=== PATIENT | female | born 1935 | race Caucasian/White ===

== ENCOUNTER → 2016-09-11 | Outpatient (CLI) | payer MEDICARE ==
[2015-10-02 15:00] VITALS: BP 154/56
[~2016-09-11] MED LIST: CALC1TAB PO; CHOL10007 PO; CYAN1TAB28 PO; DOCU-27 PO; DULO60CA44 PO; ERGO500012 PO; GABA-586 PO; HYDR5SOL2 PO; LEVO0.5P MC; LEVO75TA5 PO; LOSA1TAB18 PO; LOSA25TA4 PO; MORP30TA PO; NAPR500T3 PO; OXYC10TA32 PO; OXYC1TAB7 PO; PANT40TA5 PO; POLY17PO5 PO; SENN8.6C2 PO; TEMA7.5C2 PO; phenergan PR
--- NOTE | 2016-09-11 15:13 | CARD ---
APPROVED REPORT EXAM: Two-dimensional and M-mode echocardiogram with Doppler and color Doppler. Other Information Quality : GoodHR: 52bpm Rhythm : Bradycardia INDICATION Systolic ejection murmur RISK FACTORS Hypertension 2D DIMENSIONS RVDd2.3 (2.9-3.5cm)Left Atrium(2D)3.9 (1.6-4.0cm) IVSd1.2 (0.7-1.1cm)Aortic Root(2D)2.9 (2.0-3.7cm) LVDd4.0 (3.9-5.9cm)LVOT Diameter2.4 (1.8-2.4cm) PWd1.2 (0.7-1.1cm)LVDs4.1 (2.5-4.0cm) Aortic Valve AoV Peak Clark.157.5cm/sAoV VTI41.6cm AO Peak GR.9.9mmHgLVOT VTI 27.44cm AO Mean GR.5mmHg Mitral Valve MV E Ibyctdhs068.4cm/sMV E Peak Gr.5mmHg MV DECEL [id number] A Xvvrfukc43.2cm/s MV E Mean Gr.2mmHgE/A Ratio1.3 MV A [id number] TDI Lateral E' P. V8.50cm/sMedial E' P. V9.65cm/s E/Lateral E'13.1E/Medial E'11.5 Tricuspid Valve TR P. [id number]/sRAP [id number] TR Peak Gr.32mmHg Pulmonary Vein S1 Xmqbbrbf19.9cm/sS2 Dsgntvqb85.91cm/s D2 Dtgxrxdt87.9cm/sPVa [id number] LEFT VENTRICLE The left ventricle is normal size. There is mild concentric left ventricular hypertrophy. The left ve ntricular systolic function is normal. The Ejection Fraction is 60-65%. There is normal LV segmental wall motion. The left ventricular diastolic function and filling is normal for age. RIGHT VENTRICLE The right ventricle is normal size. There is normal right ventricular wall thickness. The right ventr icular systolic function is normal. ATRIA The left atrium size is normal. The right atrium size is normal. The interatrial septum is intact wit h no evidence for an atrial septal defect or patent foramen ovale as noted on 2-D or Doppler imaging. AORTIC VALVE The aortic valve is moderately sclerotic. The aortic valve is trileaflet. Doppler and Color Flow reve aled no significant aortic regurgitation. There is no significant aortic valvular stenosis. MITRAL VALVE Mitral annular calcification is moderate. The mitral valve leaflets are thickened. There is no eviden ce of mitral valve prolapse. There is no mitral valve stenosis. Doppler and Color Flow revealed mild to moderate mitral regurgitation. TRICUSPID VALVE Doppler and Color Flow revealed mild tricuspid regurgitation. There is mild pulmonary hypertension. T he pulmonary artery systolic pressure is estimated at 35 mmHg. PULMONIC VALVE The pulmonary valve is normal in structure and function. Doppler and Color Flow revealed no pulmonic valvular regurgitation. There is no pulmonic valvular stenosis. GREAT VESSELS The aortic root is normal in size. The ascending aorta is normal in size. The pulmonary artery is nor mal. The IVC is normal in size and collapses >50% with inspiration. PERICARDIAL EFFUSION There is no evidence of significant pericardial effusion. Critical Notification Critical Value: No <Conclusion> The left ventricular systolic function is normal. The Ejection Fraction is 60-65%. There is normal LV segmental wall motion. Mild to moderate mitral regurgitation. Mild tricuspid regurgitation. There is mild pulmonary hypertension. The pulmonary artery systolic pressure is estimated at 35 mmHg. There is no evidence of significant pericardial effusion.
== END | disposition home or self-care (01) ==
LOC: ECHO 12:56
PROVIDERS: ATTEND Internal Medicine Cardiovascular Disease
DX: R01.1 Cardiac murmur, unspecified (principal); I51.7 Cardiomegaly; I34.0 Nonrheumatic mitral (valve) insufficiency; I27.2 Other secondary pulmonary hypertension
CPT/HCPCS: 93306

== ENCOUNTER 2017-05-29 14:03 | Inpatient (IN) | payer BC ==
[~2017-05-29] VITALS: Ht 154.9 cm; Wt 78.0 kg
[~2017-05-29 14:03] MED LIST changes: +CHOL100014 PO; -CHOL10007 PO; +DOCU-109 PO; -DOCU-27 PO; -ERGO500012 PO; +ERGO500027 PO; -LOSA1TAB18 PO; +LOSA1TAB25 PO; -NAPR500T3 PO; +NAPR500T4 PO; -OXYC10TA32 PO; +OXYC10TA45 PO; +POLY17PO29 PO; -POLY17PO5 PO
[2017-05-29] MEDS ORDERED: IV NORMAL SALINE 500ML BAG 500 ML IV ONE (14:15)
[2017-05-29] MEDS ORDERED: FAMOTIDINE 20 MG/2 ML VIAL IVP ONE (14:15)
[2017-05-29] MEDS ORDERED: methylPREDNISolone SOD SUCC PF 125 MG/2 ML VIAL. IV ONE (14:15)
[2017-05-29] MEDS ORDERED: diphenhydrAMINE 50 MG/ML VIAL IV ONE (14:15)
[2017-05-29] MEDS ORDERED: ALBUTEROL SULFATE 2.5 MG/3 ML NEBU. ONE (14:16)
[2017-05-29] MEDS ORDERED: ONDANSETRON PF 4 MG/2 ML VIAL. ONE (14:19)
--- NOTE | 2017-05-29 14:25 | RAD ---
AP chest 05/29/2017 Clinical indication: Chest pain. Comparison: AP chest 09/30/2015. Findings: Heart size is mildly enlarged without pulmonary venous congestion. No pleural effusion, pneumothorax or focal consolidation. Impression: Mild cardiomegaly without forrest pulmonary edema.
[2017-05-29 14:29] LABS: BASO # 0.1 x10^3/uL (0.0-0.2); BASO % 1 % (0-3); EOS % 1 % (0-3); HEMATOCRIT 35.5 % (36.0-47.0); HEMOGLOBIN 12.2 g/dL (12.0-15.5); LYMPH # 2.9 x10^3/uL (1.0-4.8); LYMPH % 30 % (24-48); MEAN CORPUSCULAR HEMOGLOBIN 33 pg (25-35); MEAN CORPUSCULAR HGB CONC 35 g/dL (31-37); MEAN CORPUSCULAR VOLUME 96 fL (79-100); MONO % 4 % (0-9); NEUT % 65 % (31-73); PLATELET COUNT 252 x10^3/uL (140-400); RED BLOOD COUNT 3.68 x10^6/uL (3.50-5.40); WHITE BLOOD COUNT 9.7 x10^3/uL (4.0-11.0)
[2017-05-29] MEDS ORDERED: ONDANSETRON PF 4 MG/2 ML VIAL. IV ONE (14:30)
[2017-05-29 14:38] LABS: INR 1.1 (0.8-1.1); PROTHROMBIN TIME PATIENT 13.6 SEC (11.7-14.0)
[2017-05-29 14:41] LABS: CALCIUM 8.3 mg/dL (8.5-10.1); CREATININE 1.2 mg/dL (0.6-1.0); POTASSIUM 4.4 mmol/L (3.5-5.1)
[2017-05-29 14:47] LABS: ALBUMIN 3.5 g/dL (3.4-5.0); DIRECT BILIRUBIN 0.1 mg/dL (0.0-0.2); TOTAL BILIRUBIN 0.4 mg/dL (0.2-1.0); TOTAL PROTEIN 6.5 g/dL (6.4-8.2)
[2017-05-29] MEDS ORDERED: ONDANSETRON PF 4 MG/2 ML VIAL. IV PRN (15:45)
[2017-05-29] MEDS ORDERED: HYDROmorphone 2 MG/ML VIAL IV PRN (15:45)
--- NOTE | 2017-05-29 16:13 | PHYS DOC ---
Past Medical History Past Medical History: Constipation, Hypertension, Hypothyroid Additional Past Medical Histor: CHRONIC PAIN, RIGHT LEG, RIGHT HIP Past Surgical History: Hysterectomy, Lumbar Laminectomy Additional Past Surgical Histo: BACK Alcohol Use: None Drug Use: None Adult General Chief Complaint Chief Complaint: ALLERGIC REACTION HPI HPI 81-year-old female who is an extremely poor historian presenting to the emergency department today with her spouse after having a "allergic reaction". She reports she had some peppers 2 days ago from which she had some nausea and emesis. She also was seen in urgent care earlier today she reports being given a shot does not know what medication was administered. She also was given a cream for rash in her inguinal and intertriginous folds. Onset 2 days. Location GI tract. Duration intermittent. No alleviating or exacerbating factors present. Review of systems is negative for fevers chills urticaria shortness of breath difficulty breathing. She does report intermittent chest pain over the past few days that she describes as a pressure sensation. Currently she does not have chest pain. All other review of systems is negative unless otherwise noted in history of present illness. ED course. 81-year-old female presenting to the emergency department with nausea and a rash in the intertriginous regions reporting having allergic reaction. Upon arrival the patient was saturating well and did have a few episodes of emesis. On examination lungs are clear to auscultation. Abdomen is soft nondistended nontender with active bowel sounds. The remainder the exam is unremarkable. EKG along with blood work obtained which showed low sodium likely chronic. The patient was given Zofran however on reexamination she wasn't feeling better. Patient's rash is more likely a fungal for which I gave the patient topical nystatin powder. The patient received IV corticosteroids along with anti-histaminergic medications to treat a possible allergic reaction. I then admitted the patient to the hospital for further evaluation monitoring workup and care. I have assessed this patient clinically and believe that their condition requires an admission to the hospital. After consulting the admitting physician about this case, they have asked that I admit this patient to their service as an inpatient based on the clinical presentation and my impression. Review of Systems Review of Systems SEE ABOVE. Current Medications Current Medications Current Medications Medications (Trade) Dose Ordered Sig/Henry Start Time Stop Time Status Last Admin Dose Admin Albuterol Sulfate (Ventolin Neb Soln) 2.5 mg STK-MED ONCE 05/29/17 14:16 05/29/17 14:17 DC Diphenhydramine HCl (Benadryl) 25 mg 1X ONCE 05/29/17 14:15 05/29/17 14:16 DC 05/29/17 14:14 25 MG Famotidine (Pepcid Vial) 20 mg 1X ONCE 05/29/17 14:15 05/29/17 14:16 DC 05/29/17 14:14 20 MG Methylprednisolone Sodium Succinate (SOLU-Medrol 125MG VIAL) 125 mg 1X ONCE 05/29/17 14:15 05/29/17 14:16 DC 05/29/17 14:14 125 MG Nystatin (Nystop) 1 ida BID 05/29/17 15:30 05/29/17 18:52 1 IDA Ondansetron HCl (Zofran) 4 mg 1X ONCE 05/29/17 14:30 05/29/17 14:31 DC 05/29/17 14:23 4 MG Sodium Chloride 500 ml @ 500 mls/hr 1X ONCE 05/29/17 14:15 05/29/17 15:14 DC 05/29/17 14:15 500 MLS/HR Allergies Allergies Allergies Coded Allergies Type Severity Reaction Last Updated Verified Sulfa (Sulfonamide Antibiotics) Allergy Intermediate Rash 09/30/15 Yes iodine Allergy Intermediate painful rash 09/30/15 Yes iohexol Allergy Intermediate PAINFUL RASH 09/30/15 Yes pepper Allergy Mild NAUSEA/VOMITING 10/01/15 No Physical Exam Physical Exam SEE ABOVE Constitutional: Well developed, well nourished, no acute distress, non-toxic appearance. HENT: Normocephalic, atraumatic, bilateral external ears normal, oropharynx moist, no oral exudates, nose normal. [] Eyes: PERRLA, EOMI, conjunctiva normal, no discharge. Neck: Normal range of motion, no tenderness, supple, no stridor. [] Cardiovascular:Heart rate regular rhythm, no murmur Lungs & Thorax: Bilateral breath sounds clear to auscultation [] Abdomen: Bowel sounds normal, soft, no tenderness, no masses, no pulsatile masses. Skin: Warm, dry, no erythema. Mild erythematous rash in the inguinal intertriginous regions. Back: No tenderness, no CVA tenderness. Extremities: No tenderness, no cyanosis, no clubbing, ROM intact, no edema. [] Neurologic: Alert and oriented X 3, normal motor function, normal sensory function, no focal deficits noted. [] Psychologic: Affect normal, judgement normal, mood normal. [] Current Patient Data Vital Signs Vital Signs Date Time Temp Pulse Resp B/P (MAP) Pulse Ox O2 Delivery O2 Flow Rate FiO2 05/29/17 15:30 60 18 165/66 (99) 98 Room Air 05/29/17 14:05 97.7 97.7 Lab Values Laboratory Tests Test 05/29/17 14:10 White Blood Count 9.7 x10^3/uL (4.0-11.0) Red Blood Count 3.68 x10^6/uL (3.50-5.40) Hemoglobin 12.2 g/dL (12.0-15.5) Hematocrit 35.5 % (36.0-47.0) L Mean Corpuscular Volume 96 fL (79-100) Mean Corpuscular Hemoglobin 33 pg (25-35) Mean Corpuscular Hemoglobin Concent 35 g/dL (31-37) Red Cell Distribution Width 13.0 % (11.5-14.5) Platelet Count 252 x10^3/uL (140-400) Neutrophils (%) (Auto) 65 % (31-73) Lymphocytes (%) (Auto) 30 % (24-48) Monocytes (%) (Auto) 4 % (0-9) Eosinophils (%) (Auto) 1 % (0-3) Basophils (%) (Auto) 1 % (0-3) Neutrophils # (Auto) 6.3 x10^3uL (1.8-7.7) Lymphocytes # (Auto) 2.9 x10^3/uL (1.0-4.8) Monocytes # (Auto) 0.4 x10^3/uL (0.0-1.1) Eosinophils # (Auto) 0.1 x10^3/uL (0.0-0.7) Basophils # (Auto) 0.1 x10^3/uL (0.0-0.2) Prothrombin Time 13.6 SEC (11.7-14.0) Prothrombin Time INR 1.1 (0.8-1.1) PTT 28 SEC (24-38) Sodium Level 125 mmol/L (136-145) L Potassium Level 4.4 mmol/L (3.5-5.1) Chloride Level 93 mmol/L (98-107) L Carbon Dioxide Level 23 mmol/L (21-32) Anion Gap 9 (6-14) Blood Urea Nitrogen 15 mg/dL (7-20) Creatinine 1.2 mg/dL (0.6-1.0) H Estimated GFR (Cockcroft-Gault) 43.0 Glucose Level 145 mg/dL (70-99) H Calcium Level 8.3 mg/dL (8.5-10.1) L Total Bilirubin 0.4 mg/dL (0.2-1.0) Direct Bilirubin 0.1 mg/dL (0.0-0.2) Aspartate Amino Transferase (AST) 17 U/L (15-37) Alanine Aminotransferase (ALT) 19 U/L (14-59) Alkaline Phosphatase 83 U/L (46-116) Troponin I Quantitative < 0.017 ng/mL (0.000-0.055) WG-Uoa-Y-Type Natriuretic Peptide 367 pg/mL (0-449) Total Protein 6.5 g/dL (6.4-8.2) Albumin 3.5 g/dL (3.4-5.0) Lipase 92 U/L (73-393) Laboratory Tests 05/29/17 14:10 Laboratory Tests 05/29/17 14:10 EKG EKG [] Radiology/Procedures Radiology/Procedures [] Course & Med Decision Making Course & Med Decision Making Pertinent Labs and Imaging studies reviewed. (See chart for details) [] Dragon Disclaimer Dragon Disclaimer This electronic medical record was generated, in whole or in part, using a voice recognition dictation system. Departure Departure Impression: Primary Impression: Nausea & vomiting Additional Impressions: Chest pain Rash Disposition: ADMITTED INPATIENT Admitting Physician: Lucy Haddad Condition: STABLE Referrals: WILFREDO APODACA MD (PCP) Problem Qualifiers REKHA MANN MD May 29, 2017 16:13
[2017-05-29 17:30] VITALS: BP 143/60
[2017-05-29] MEDS ORDERED: diphenhydrAMINE HCL 25 MG CAPSULE PO ONE (18:15)
--- NOTE | 2017-05-29 18:20 | PDOC1 ---
History and Physical Date of Admission Date of Admission DATE: 05/29/17 TIME: 18:14 Identification/Chief Complaint Chief Complaint rash, itching Problems: Source Source: Chart review, Patient History of Present Illness History of Present Illness Ms. Graves is an 81-year-old female presented confused today and with her spouse after having a "allergic reaction". She was agitated with skin rash and itching and could not get comfortable. She told me a long story about the Holiday potluck at the [facility], and that she might have ate some pepper that she is very allergic too. Apparently that was 2 days ago. She has had some nausea and emesis. She also was seen in urgent care earlier today and was given a shot. her rash is her inguinal area, and back, . Past Medical History Cardiovascular: HTN Endocrine: Hypothyroidism Past Surgical History Past Surgical History: Other Family History Family History: No Significant Social History Smoke: No ALCOHOL: rare Current Problem List Problem List Problems Medical Problems: (1) Chest pain Status: Acute (2) Nausea & vomiting Status: Acute (3) Rash Status: Acute Problems: Current Medications Current Medications Current Medications Methylprednisolone Sodium Succinate (SOLU-Medrol 125MG VIAL) 125 mg 1X ONCE IV Last administered on 05/29/17 14:14; Start 05/29/17 at 14:15; Stop at 14:16; Status DC Diphenhydramine HCl (Benadryl) 25 mg 1X ONCE IV Last administered on 14:14; Start 05/29/17 at 14:15; Stop 05/29/17 at 14:16; Status DC Famotidine (Pepcid Vial) 20 mg 1X ONCE IVP Last administered on 05/29/17 14: 14; Start 05/29/17 at 14:15; Stop 05/29/17 at 14:16; Status DC Sodium Chloride 500 ml @ 500 mls/hr 1X ONCE IV Last administered on 14:15; Start 05/29/17 at 14:15; Stop 05/29/17 at 15:14; Status DC Albuterol Sulfate (Ventolin Neb Soln) 2.5 mg STK-MED ONCE .ROUTE ; Start at 14:16; Stop 05/29/17 at 14:17; Status DC Ondansetron HCl (Zofran) 4 mg STK-MED ONCE .ROUTE ; Start 05/29/17 at 14:19; Stop 05/29/17 at 14:20; Status DC Ondansetron HCl (Zofran) 4 mg 1X ONCE IV Last administered on 05/29/17t 14:23 ; Start 05/29/17 at 14:30; Stop 05/29/17 at 14:31; Status DC Nystatin (Nystop) 1 ida BID TP ; Start 05/29/17 at 15:30 Ondansetron HCl (Zofran) 4 mg PRN Q8HRS PRN IV NAUSEA/VOMITING; Start at 15:45; Stop 05/30/17 at 15:44 Sodium Chloride 1,000 ml @ 100 mls/hr Q10H IV ; Start 05/29/17 at 15:42; Stop 05/30/17 at 03:41 Hydromorphone HCl (Dilaudid) 0.5 mg PRN Q30MIN PRN IV SEVERE PAIN; Start 05/29 at 15:45 Active Scripts Active Reported Restoril (Temazepam) 7.5 Mg Capsule 7.5 Mg PO HS PRN Vitamin D3 (Cholecalciferol (Vitamin D3)) 1,000 Unit Capsule 1,000 Unit PO DAILY Colace (Docusate Sodium) 100 Mg Capsule 1 Cap PO DAILY Miralax (Polyethylene Glycol 3350) 17 Gm Powd.pack 17 Gm PO DAILY Last dose given: 9:00 a.m. Oxycodone-Acetaminophen 5-325 (Oxycodone Hcl/Acetaminophen) 1 Each Tablet 1 Each PO PRN Q6HRS PRN Last dose given: 2:00 p.m. Losartan Potassium 25 Mg Tablet 50 Mg PO DAILY Last dose given: 9:00 a.m. Levothyroxine Sodium 75 Mcg Tablet 75 Mcg PO DAILY Last dose given: 7:00 a.m. Allergies Allergies: Coded Allergies: Sulfa (Sulfonamide Antibiotics) (Verified Allergy, Intermediate, Rash, ) iodine (Verified Allergy, Intermediate, painful rash, 09/30/15) pt states that she is sensitive to all chemicals iohexol (Verified Allergy, Intermediate, PAINFUL RASH, 09/30/15) pepper (Unverified Allergy, Mild, NAUSEA/VOMITING, 10/01/15) ROS General: YES: Fatigue, No: Chills, Night Sweats, Malaise, Appetite, Other PSYCHOLOGICAL ROS: No: Anxiety, Behavioral Disorder, Concentration difficultie , Decreased libido, Depression, Disorientation, Hallucinations, Hostility, Irritablity, Memory difficulties, Mood Swings, Obsessive thoughts, Suicidal ideation, Other Eyes: No Blurry vision, No Decreased vision, No Double vision, No Dry eyes, No Excessive tearing, No Eye Pain, No Itchy Eyes, No Loss of vision, No Photophobia , No Scotomata, No Uses contacts, No Uses glasses, No Other HEENT: No: Heacaches, Visual Changes, Hearing change, Nasal congestion, Nasal discharge, Oral lesions, Sinus pain, Sore Throat, Epistaxis, Sneezing, Snoring, Tinnitus, Vertigo, Vocal changes, Other Respiratory: YES: Shortness of breath, No: Cough, Hemoptysis, Orthopnea, Pleuritic Pain, SOB with excertion, Sputum Changes, Stridor, Tachypnea, Wheezing, Other Cardiovascular: No Chest Pain, No Palpitations, No Orthopnea, No Paroxysmal Noc. Dyspnea, No Edema, No Lt Headedness, No Other Gastrointestinal: No Nausea, No Vomiting, No Abdominal Pain, No Diarrhea, No Constipation, No Melena, No Hematochezia, No Other Genitourinary: No Dysuria, No Frequency, No Incontinence, No Hematuria, No Retention, No Discharge, No Urgency, No Pain, No Flank Pain, No Other, No , No , No , No , No , No , No Musculoskeletal: No Gait Disturbance, No Joint Pain, No Joint Stiffness, No Joint Swelling, No Muscle Pain, No Muscular Weakness, No Pain In:, No Swelling In:, No Other Neurological: No Behavorial Changes, No Bowel/Bladder ControlChng, No Confusion , No Dizziness, No Gait Disturbance, No Headaches, No Impaired Coord/balance, No Memory Loss, No Numbness/Tingling, No Seizures, No Speech Problems, No Tremors, No Visual Changes, No Weakness, No Other Skin: Yes Dry Skin, Yes Eczema, Yes Rash, Yes Skin Lesion Changes, Yes Other Physical Exam General: Alert, Oriented X3, No acute distress HEENT: Atraumatic, PERRLA, EOMI, Mucous membr. moist/pink Lungs: Clear to auscultation, Normal air movement Heart: no gallops, no murmurs Abdomen: Normal bowel sounds, Soft Extremities: No cyanosis, No edema Skin: Other (erythema with rash and papulus to back and groin, poss allergic ) Neuro: Normal gait, Sensation intact, Cranial nerves 3-12 NL Psych/Mental Status: Mood NL Vitals Vitals Vital Signs Date Time Temp Pulse Resp B/P (MAP) Pulse Ox O2 Delivery O2 Flow Rate FiO2 05/29/17 17:30 98.0 62 18 143/60 (87) 97 Room Air 98.0 Labs Labs Laboratory Tests Test 05/29/17 14:10 White Blood Count 9.7 x10^3/uL (4.0-11.0) Red Blood Count 3.68 x10^6/uL (3.50-5.40) Hemoglobin 12.2 g/dL (12.0-15.5) Hematocrit 35.5 % (36.0-47.0) Mean Corpuscular Volume 96 fL (79-100) Mean Corpuscular Hemoglobin 33 pg (25-35) Mean Corpuscular Hemoglobin Concent 35 g/dL (31-37) Red Cell Distribution Width 13.0 % (11.5-14.5) Platelet Count 252 x10^3/uL (140-400) Neutrophils (%) (Auto) 65 % (31-73) Lymphocytes (%) (Auto) 30 % (24-48) Monocytes (%) (Auto) 4 % (0-9) Eosinophils (%) (Auto) 1 % (0-3) Basophils (%) (Auto) 1 % (0-3) Neutrophils # (Auto) 6.3 x10^3uL (1.8-7.7) Lymphocytes # (Auto) 2.9 x10^3/uL (1.0-4.8) Monocytes # (Auto) 0.4 x10^3/uL (0.0-1.1) Eosinophils # (Auto) 0.1 x10^3/uL (0.0-0.7) Basophils # (Auto) 0.1 x10^3/uL (0.0-0.2) Prothrombin Time 13.6 SEC (11.7-14.0) Prothromb Time International Ratio 1.1 (0.8-1.1) Activated Partial Thromboplast Time 28 SEC (24-38) Sodium Level 125 mmol/L (136-145) Potassium Level 4.4 mmol/L (3.5-5.1) Chloride Level 93 mmol/L (98-107) Carbon Dioxide Level 23 mmol/L (21-32) Anion Gap 9 (6-14) Blood Urea Nitrogen 15 mg/dL (7-20) Creatinine 1.2 mg/dL (0.6-1.0) Estimated GFR (Cockcroft-Gault) 43.0 Glucose Level 145 mg/dL (70-99) Calcium Level 8.3 mg/dL (8.5-10.1) Total Bilirubin 0.4 mg/dL (0.2-1.0) Direct Bilirubin 0.1 mg/dL (0.0-0.2) Aspartate Amino Transf (AST/SGOT) 17 U/L (15-37) Alanine Aminotransferase (ALT/SGPT) 19 U/L (14-59) Alkaline Phosphatase 83 U/L (46-116) Troponin I Quantitative < 0.017 ng/mL (0.000-0.055) GQ-Tjt-I-Type Natriuretic Peptide 367 pg/mL (0-449) Total Protein 6.5 g/dL (6.4-8.2) Albumin 3.5 g/dL (3.4-5.0) Lipase 92 U/L (73-393) Laboratory Tests Test 05/29/17 14:10 White Blood Count 9.7 x10^3/uL (4.0-11.0) Red Blood Count 3.68 x10^6/uL (3.50-5.40) Hemoglobin 12.2 g/dL (12.0-15.5) Hematocrit 35.5 % (36.0-47.0) Mean Corpuscular Volume 96 fL (79-100) Mean Corpuscular Hemoglobin 33 pg (25-35) Mean Corpuscular Hemoglobin Concent 35 g/dL (31-37) Red Cell Distribution Width 13.0 % (11.5-14.5) Platelet Count 252 x10^3/uL (140-400) Neutrophils (%) (Auto) 65 % (31-73) Lymphocytes (%) (Auto) 30 % (24-48) Monocytes (%) (Auto) 4 % (0-9) Eosinophils (%) (Auto) 1 % (0-3) Basophils (%) (Auto) 1 % (0-3) Neutrophils # (Auto) 6.3 x10^3uL (1.8-7.7) Lymphocytes # (Auto) 2.9 x10^3/uL (1.0-4.8) Monocytes # (Auto) 0.4 x10^3/uL (0.0-1.1) Eosinophils # (Auto) 0.1 x10^3/uL (0.0-0.7) Basophils # (Auto) 0.1 x10^3/uL (0.0-0.2) Prothrombin Time 13.6 SEC (11.7-14.0) Prothromb Time International Ratio 1.1 (0.8-1.1) Activated Partial Thromboplast Time 28 SEC (24-38) Sodium Level 125 mmol/L (136-145) Potassium Level 4.4 mmol/L (3.5-5.1) Chloride Level 93 mmol/L (98-107) Carbon Dioxide Level 23 mmol/L (21-32) Anion Gap 9 (6-14) Blood Urea Nitrogen 15 mg/dL (7-20) Creatinine 1.2 mg/dL (0.6-1.0) Estimated GFR (Cockcroft-Gault) 43.0 Glucose Level 145 mg/dL (70-99) Calcium Level 8.3 mg/dL (8.5-10.1) Total Bilirubin 0.4 mg/dL (0.2-1.0) Direct Bilirubin 0.1 mg/dL (0.0-0.2) Aspartate Amino Transf (AST/SGOT) 17 U/L (15-37) Alanine Aminotransferase (ALT/SGPT) 19 U/L (14-59) Alkaline Phosphatase 83 U/L (46-116) Troponin I Quantitative < 0.017 ng/mL (0.000-0.055) SK-Xhg-H-Type Natriuretic Peptide 367 pg/mL (0-449) Total Protein 6.5 g/dL (6.4-8.2) Albumin 3.5 g/dL (3.4-5.0) Lipase 92 U/L (73-393) VTE Prophylaxis Ordered VTE Prophylaxis Devices: Yes VTE Pharmacological Prophylaxi: No Assessment/Plan Assessment/Plan acute on chronic encephalopathy delirium from puritis skin rash, hives, possible allergic, consult derm, try benadryl cream, hydrocort cream IV steroids given in ER htn hypothyroid JAYA MIGUEL MD May 29, 2017 18:20
[2017-05-29] MEDS ORDERED: TEMAZEPAM 7.5 MG CAPSULE PO PRN (18:30)
[2017-05-29] MEDS ORDERED: oxyCODONE/APAP 5/325 1 TAB TABLET PO PRN (18:30)
[2017-05-29] MEDS: IV NORMAL SALINE 1000ML BAG 1,000 ML IV SCH (18:51)
[2017-05-29] MEDS: NYSTATIN TOPICAL POWDER 15GM BOTTLE. TP SCH ×2 (18:52→21:28)
--- NOTE | 2017-05-29 19:31 | EKG ---
[facility] [address] [place] [address] Test Date: 2017-05-29 Test Time: 14:29:44 Pat Name: MAGI KEANE Department: Room: Gender: F [employer] Operator: : [id number] Requested By: REKHA MANN Order Number: [id number] Reading MD: Measurements Intervals [place] Rate: 54 P: 12 WV: 150 QRS: -46 QRSD: 132 T: 0 QT: 470 QTc: 448 Interpretive Statements SINUS RHYTHM ABNORMAL LEFT AXIS DEVIATION LEFT ANTERIOR FASCICULAR BLOCK RIGHT BUNDLE BRANCH BLOCK BIFASCICULAR BLOCK ABNORMAL ECG RI6.01 No previous ECG available for comparison
[2017-05-29 19:49] VITALS: BP 129/51
[2017-05-29] MEDS: DIPHENHYDRAMINE/ZINC ACETATE 2%/0.1% TOPICAL CREAM 28GM TUBE. TP SCH (20:00)
[2017-05-29] MEDS ORDERED: GABA600T2 PO (20:03)
[2017-05-29] MEDS ORDERED: GABAPENTIN 300 MG CAPSULE. PO SCH (21:00)
[2017-05-29] MEDS: HYDROCORTISONE 1% TOPICAL OINTMENT 30GM TUBE. TP SCH (21:29)
[2017-05-29 23:54] VITALS: BP 135/59
[2017-05-30] MEDS: IV NORMAL SALINE 1000ML BAG 1,000 ML IV SCH (01:42)
[2017-05-30 02:33] VITALS: BP 137/52
[2017-05-30 05:49] LABS: BASO % 0 % (0-3); EOS % 0 % (0-3); HEMATOCRIT 33.1 % (36.0-47.0); HEMOGLOBIN 11.3 g/dL (12.0-15.5); LYMPH # 0.6 x10^3/uL (1.0-4.8); LYMPH % 9 % (24-48); MEAN CORPUSCULAR HEMOGLOBIN 33 pg (25-35); MEAN CORPUSCULAR HGB CONC 34 g/dL (31-37); MEAN CORPUSCULAR VOLUME 97 fL (79-100); MONO % 1 % (0-9); NEUT % 90 % (31-73); PLATELET COUNT 222 x10^3/uL (140-400); RED BLOOD COUNT 3.42 x10^6/uL (3.50-5.40); RED CELL DISTRIBUTION WIDTH 13.3 % (11.5-14.5); WHITE BLOOD COUNT 6.5 x10^3/uL (4.0-11.0)
[2017-05-30 06:55] LABS: CALCIUM 8.1 mg/dL (8.5-10.1); GFR 53.1; POTASSIUM 4.5 mmol/L (3.5-5.1)
[2017-05-30 07:00] VITALS: BP 134/61
[2017-05-30] MEDS ORDERED: LEVOTHYROXINE 75 MCG TABLET PO SCH (07:00)
[2017-05-30] MEDS: DIPHENHYDRAMINE/ZINC ACETATE 2%/0.1% TOPICAL CREAM 28GM TUBE. TP SCH ×3 (07:40→12:58)
[2017-05-30] MEDS ORDERED: LOSARTAN POTASSIUM 25 MG TABLET. PO SCH (09:00)
[2017-05-30] MEDS ORDERED: DOCUSATE SODIUM 100 MG CAPSULE. PO SCH (09:00)
[2017-05-30] MEDS ORDERED: GABAPENTIN 300 MG CAPSULE. PO SCH (09:00)
[2017-05-30] MEDS ORDERED: POLYETHYLENE GLYCOL 3350 17 GM PACKET. PO SCH (09:00)
[2017-05-30 09:35] LABS: OVALOCYTES FEW; PLT ESTIMATE ADEQUATE (ADEQUATE)
[2017-05-30] MEDS ORDERED: ACETAMINOPHEN 500 MG TABLET PO PRN (09:45)
[2017-05-30] MEDS: diphenhydrAMINE HCL 25 MG CAPSULE PO PRN ×2 (09:59→15:32)
[2017-05-30 11:00] VITALS: BP 130/49
[2017-05-30] MEDS: HYDROCORTISONE 1% TOPICAL OINTMENT 30GM TUBE. TP SCH (12:54)
[2017-05-30] MEDS: NYSTATIN TOPICAL POWDER 15GM BOTTLE. TP SCH (12:54)
[2017-05-30] MEDS ORDERED: DIPH25CA58 PO (14:36)
--- NOTE | 2017-05-30 14:42 | PDOC3 ---
Discharge Summary Visit Information Date of Admission: May 29, 2017 Date of Discharge: May 30, 2017 Admitting Diagnosis Comment: Allergic dermatitis, possible contact versus induced by pepper BCT NOS, BMI 32.5, delirium present on admission resolved -secondary to steroids? Final Diagnosis Problems Medical Problems: (1) Chest pain Status: Acute (2) Nausea & vomiting Status: Acute (3) Rash Status: Acute Brief Hospital Course Allergies Allergies Coded Allergies Type Severity Reaction Last Updated Verified Sulfa (Sulfonamide Antibiotics) Allergy Intermediate Rash 09/30/15 Yes iodine Allergy Intermediate painful rash 09/30/15 Yes iohexol Allergy Intermediate PAINFUL RASH 09/30/15 Yes pepper Allergy Mild NAUSEA/VOMITING 05/30/17 Yes Vital Signs Vital Signs Date Time Temp Pulse Resp B/P (MAP) Pulse Ox O2 Delivery O2 Flow Rate FiO2 05/30/17 11:00 97.3 63 18 130/49 (76) 98 Room Air 97.3 Lab Results Laboratory Tests Test 05/29/17 14:10 05/29/17 21:00 05/30/17 03:30 White Blood Count 9.7 x10^3/uL (4.0-11.0) 6.5 x10^3/uL (4.0-11.0) Red Blood Count 3.68 x10^6/uL (3.50-5.40) 3.42 x10^6/uL (3.50-5.40) Hemoglobin 12.2 g/dL (12.0-15.5) 11.3 g/dL (12.0-15.5) Hematocrit 35.5 % (36.0-47.0) 33.1 % (36.0-47.0) Mean Corpuscular Volume 96 fL (79-100) 97 fL (79-100) Mean Corpuscular Hemoglobin 33 pg (25-35) 33 pg (25-35) Mean Corpuscular Hemoglobin Concent 35 g/dL (31-37) 34 g/dL (31-37) Red Cell Distribution Width 13.0 % (11.5-14.5) 13.3 % (11.5-14.5) Platelet Count 252 x10^3/uL (140-400) 222 x10^3/uL (140-400) Neutrophils (%) (Auto) 65 % (31-73) 90 % (31-73) Lymphocytes (%) (Auto) 30 % (24-48) 9 % (24-48) Monocytes (%) (Auto) 4 % (0-9) 1 % (0-9) Eosinophils (%) (Auto) 1 % (0-3) 0 % (0-3) Basophils (%) (Auto) 1 % (0-3) 0 % (0-3) Neutrophils # (Auto) 6.3 x10^3uL (1.8-7.7) 5.9 x10^3uL (1.8-7.7) Lymphocytes # (Auto) 2.9 x10^3/uL (1.0-4.8) 0.6 x10^3/uL (1.0-4.8) Monocytes # (Auto) 0.4 x10^3/uL (0.0-1.1) 0.1 x10^3/uL (0.0-1.1) Eosinophils # (Auto) 0.1 x10^3/uL (0.0-0.7) 0.0 x10^3/uL (0.0-0.7) Basophils # (Auto) 0.1 x10^3/uL (0.0-0.2) 0.0 x10^3/uL (0.0-0.2) Prothrombin Time 13.6 SEC (11.7-14.0) Prothromb Time International Ratio 1.1 (0.8-1.1) Activated Partial Thromboplast Time 28 SEC (24-38) Sodium Level 125 mmol/L (136-145) 127 mmol/L (136-145) Potassium Level 4.4 mmol/L (3.5-5.1) 4.5 mmol/L (3.5-5.1) Chloride Level 93 mmol/L (98-107) 94 mmol/L (98-107) Carbon Dioxide Level 23 mmol/L (21-32) 22 mmol/L (21-32) Anion Gap 9 (6-14) 11 (6-14) Blood Urea Nitrogen 15 mg/dL (7-20) 13 mg/dL (7-20) Creatinine 1.2 mg/dL (0.6-1.0) 1.0 mg/dL (0.6-1.0) Estimated GFR (Cockcroft-Gault) 43.0 53.1 Glucose Level 145 mg/dL (70-99) 145 mg/dL (70-99) Calcium Level 8.3 mg/dL (8.5-10.1) 8.1 mg/dL (8.5-10.1) Total Bilirubin 0.4 mg/dL (0.2-1.0) Direct Bilirubin 0.1 mg/dL (0.0-0.2) Aspartate Amino Transf (AST/SGOT) 17 U/L (15-37) Alanine Aminotransferase (ALT/SGPT) 19 U/L (14-59) Alkaline Phosphatase 83 U/L (46-116) Troponin I Quantitative < 0.017 ng/mL (0.000-0.055) < 0.017 ng/mL (0.000-0.055) < 0.017 ng/mL (0.000-0.055) WQ-Xxw-L-Type Natriuretic Peptide 367 pg/mL (0-449) Total Protein 6.5 g/dL (6.4-8.2) Albumin 3.5 g/dL (3.4-5.0) Lipase 92 U/L (73-393) Segmented Neutrophils % 69 % (35-66) Band Neutrophils % 23 % (0-9) Lymphocytes % 6 % (24-48) Atypical Lymphocytes % (Manual) 1 % (0-0) Monocytes % 1 % (0-10) Platelet Estimate Adequate (ADEQUATE) Ovalocytes Few Laboratory Tests Test 05/29/17 21:00 05/30/17 03:30 Troponin I Quantitative < 0.017 ng/mL (0.000-0.055) < 0.017 ng/mL (0.000-0.055) White Blood Count 6.5 x10^3/uL (4.0-11.0) Red Blood Count 3.42 x10^6/uL (3.50-5.40) Hemoglobin 11.3 g/dL (12.0-15.5) Hematocrit 33.1 % (36.0-47.0) Mean Corpuscular Volume 97 fL (79-100) Mean Corpuscular Hemoglobin 33 pg (25-35) Mean Corpuscular Hemoglobin Concent 34 g/dL (31-37) Red Cell Distribution Width 13.3 % (11.5-14.5) Platelet Count 222 x10^3/uL (140-400) Neutrophils (%) (Auto) 90 % (31-73) Lymphocytes (%) (Auto) 9 % (24-48) Monocytes (%) (Auto) 1 % (0-9) Eosinophils (%) (Auto) 0 % (0-3) Basophils (%) (Auto) 0 % (0-3) Neutrophils # (Auto) 5.9 x10^3uL (1.8-7.7) Lymphocytes # (Auto) 0.6 x10^3/uL (1.0-4.8) Monocytes # (Auto) 0.1 x10^3/uL (0.0-1.1) Eosinophils # (Auto) 0.0 x10^3/uL (0.0-0.7) Basophils # (Auto) 0.0 x10^3/uL (0.0-0.2) Segmented Neutrophils % 69 % (35-66) Band Neutrophils % 23 % (0-9) Lymphocytes % 6 % (24-48) Atypical Lymphocytes % (Manual) 1 % (0-0) Monocytes % 1 % (0-10) Platelet Estimate Adequate (ADEQUATE) Ovalocytes Few Sodium Level 127 mmol/L (136-145) Potassium Level 4.5 mmol/L (3.5-5.1) Chloride Level 94 mmol/L (98-107) Carbon Dioxide Level 22 mmol/L (21-32) Anion Gap 11 (6-14) Blood Urea Nitrogen 13 mg/dL (7-20) Creatinine 1.0 mg/dL (0.6-1.0) Estimated GFR (Cockcroft-Gault) 53.1 Glucose Level 145 mg/dL (70-99) Calcium Level 8.1 mg/dL (8.5-10.1) Brief Hospital Course Ms. Graves is a 81 old female who was admitted overnight from the emergency room because of pruritic rash on bilateral groin area flexural areas in bilateral upper extremity. She claims it is from Pepper. 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 She had some hot chili on Wednesday. She was admitted on Wednesday. She has gotten Solu-Medrol 125 and some Benadryl and the lesions appeared much more calmer, not painful, not red, none look infected. There is some postinflammatory hyperpigmentation appreciable. Patient does not want to see anymore flour blender. The rest of the vital signs and labs okay. Chest x- ray was unremarkable. Claims she had a Pepper from cafeteria today and there is mild swelling of the lip which is very mild and rather unappreciable until she caught my attention. To go home with by mouth prednisone taper and Benadryl. Rx. No Pepper on discharge. Discharge disposition to home Procedures performed none consults performed none Discharge Information Condition at Discharge: Improved, Stable Disposition/Orders: D/C to Home Scheduled Cholecalciferol (Vitamin D3) (Vitamin D3), 1,000 UNIT PO DAILY, (Reported) Docusate Sodium (Colace), 1 CAP PO DAILY, (Reported) Gabapentin (Gabapentin), 600 MG PO BID, (Reported) Levothyroxine Sodium (Levothyroxine Sodium), 75 MCG PO DAILY, (Reported) Losartan Potassium (Losartan Potassium), 50 MG PO DAILY, (Reported) Polyethylene Glycol 3350 (Miralax), 17 GM PO DAILY, (Reported) Scheduled PRN Oxycodone Hcl/Acetaminophen (Oxycodone-Acetaminophen 5-325), 1 EACH PO PRN Q6HRS PRN for PAIN, (Reported) Temazepam (Restoril), 7.5 MG PO HS PRN for INSOMNIA, (Reported) STIVEN JOYA MD May 30, 2017 14:42
--- NOTE | 2017-05-30 14:49 | PDOC2 ---
CONSULT Date of Consult Date of Consult DATE: 05/30/17 TIME: 14:41 Reason for Consult Reason for Consult: chest pain Referring Physician Referring Physician: Dr. Haddad Identification/Chief Complaint Chief Complaint "An allergic reaction" Problems: Source Source: Patient History of Present Illness Reason for Visit: The patient is an 81-year-old female who was admitted through the emergency room yesterday for a possible allergic reaction. She had nausea and vomiting as well as generalized aches and pains after ingesting some food that she was possibly allergic to. She had been treated as an outpatient but this apparently was not totally successful and she came to the emergency room. In addition to her nausea and vomiting she reported generalized pains including some episodes of chest pain. Her EKG shows a sinus rhythm with nonspecific ST-T wave changes. Her troponin levels have been normal 3. Chest x-ray shows mild cardiomegaly but no other significant changes. Past Medical History Cardiovascular: HTN Endocrine: Hypothyroidism Past Surgical History Past Surgical History: Hysterectomy, Other (lumbar laminectomy) Family History Family History: No Significant Social History No ALCOHOL: rare Current Problem List Problem List Problems Medical Problems: (1) Chest pain Status: Acute (2) Nausea & vomiting Status: Acute (3) Rash Status: Acute Current Medications Current Medications Current Medications Methylprednisolone Sodium Succinate (SOLU-Medrol 125MG VIAL) 125 mg 1X ONCE IV Last administered on 05/29/17 14:14; Start 05/29/17 at 14:15; Stop at 14:16; Status DC Diphenhydramine HCl (Benadryl) 25 mg 1X ONCE IV Last administered on 14:14; Start 05/29/17 at 14:15; Stop 05/29/17 at 14:16; Status DC Famotidine (Pepcid Vial) 20 mg 1X ONCE IVP Last administered on 05/29/17 14: 14; Start 05/29/17 at 14:15; Stop 05/29/17 at 14:16; Status DC Sodium Chloride 500 ml @ 500 mls/hr 1X ONCE IV Last administered on 14:15; Start 05/29/17 at 14:15; Stop 05/29/17 at 15:14; Status DC Albuterol Sulfate (Ventolin Neb Soln) 2.5 mg STK-MED ONCE .ROUTE ; Start at 14:16; Stop 05/29/17 at 14:17; Status DC Ondansetron HCl (Zofran) 4 mg STK-MED ONCE .ROUTE ; Start 05/29/17 at 14:19; Stop 05/29/17 at 14:20; Status DC Ondansetron HCl (Zofran) 4 mg 1X ONCE IV Last administered on 05/29/17 14:23 ; Start 05/29/17 at 14:30; Stop 05/29/17 at 14:31; Status DC Nystatin (Nystop) 1 ida BID TP Last administered on 05/30/17 12:54; Start at 15:30 Ondansetron HCl (Zofran) 4 mg PRN Q8HRS PRN IV NAUSEA/VOMITING; Start at 15:45; Stop 05/30/17 at 15:44 Sodium Chloride 1,000 ml @ 100 mls/hr Q10H IV Last administered on 05/29/17 18:51; Start 05/29/17 at 15:42; Stop 05/30/17 at 03:41; Status DC Hydromorphone HCl (Dilaudid) 0.5 mg PRN Q30MIN PRN IV SEVERE PAIN; Start 05/29 at 15:45 Diphenhydramine HCl (Benadryl) 25 mg 1X ONCE PO Last administered on 18:51; Start 05/29/17 at 18:15; Stop 05/29/17 at 18:16; Status DC Zinc Acetate/ Diphenhydramine (Benadryl Topical) 1 ida Q6HRS TP Last administered on 05/30/17 12:58; Start 05/29/17 at 18:14 Hydrocortisone (Cortaid) 1 ida BID TP Last administered on 05/30/17 12:54; Start 05/29/17 at 21:00 Docusate Sodium (Colace) 100 mg DAILY PO Last administered on 05/30/17 10:00 ; Start 05/30/17 at 09:00 Levothyroxine Sodium (Synthroid) 75 mcg DAILY07 PO Last administered on 10:00; Start 05/30/17 at 07:00 Losartan Potassium (Cozaar) 50 mg DAILY PO Last administered on 05/30/17 09: 59; Start 05/30/17 at 09:00 Oxycodone/ Acetaminophen (Percocet 5/325) 1 tab PRN Q6HRS PRN PO PAIN MOD TO SEV; Start 05/29/17 at 18:30 Polyethylene Glycol (miraLAX PACKET) 17 gm DAILY PO Last administered on 10:00; Start 05/30/17 at 09:00 Temazepam (Restoril) 7.5 mg PRN QHS PRN PO INSOMNIA; Start 05/29/17 at 18:30 Gabapentin (Neurontin) 600 mg TID PO Last administered on 05/29/17 21:22; Start 05/29/17 at 21:00; Stop 05/30/17 at 08:22; Status DC Gabapentin (Neurontin) 600 mg BID PO Last administered on 05/30/17 10:00; Start 05/30/17 at 09:00 Diphenhydramine HCl (Benadryl) 25 mg PRN Q6HRS PRN PO ITCHING Last administered on 05/30/17 09:59; Start 05/30/17 at 09:45 Acetaminophen (Tylenol) 500 mg PRN Q6HRS PRN PO MILD PAIN / TEMP Last administered on 05/30/17 09:59; Start 05/30/17 at 09:45 Active Scripts Active Reported Gabapentin 600 Mg Tablet 600 Mg PO BID Restoril (Temazepam) 7.5 Mg Capsule 7.5 Mg PO HS PRN Vitamin D3 (Cholecalciferol (Vitamin D3)) 1,000 Unit Capsule 1,000 Unit PO DAILY Colace (Docusate Sodium) 100 Mg Capsule 1 Cap PO DAILY Miralax (Polyethylene Glycol 3350) 17 Gm Powd.pack 17 Gm PO DAILY Last dose given: 9:00 a.m. Oxycodone-Acetaminophen 5-325 (Oxycodone Hcl/Acetaminophen) 1 Each Tablet 1 Each PO PRN Q6HRS PRN Last dose given: 2:00 p.m. Losartan Potassium 25 Mg Tablet 50 Mg PO DAILY Last dose given: 9:00 a.m. Levothyroxine Sodium 75 Mcg Tablet 75 Mcg PO DAILY Last dose given: 7:00 a.m. Allergies Allergies: Coded Allergies: Sulfa (Sulfonamide Antibiotics) (Verified Allergy, Intermediate, Rash, 4/ 18/16) iodine (Verified Allergy, Intermediate, painful rash, 09/30/15) pt states that she is sensitive to all chemicals iohexol (Verified Allergy, Intermediate, PAINFUL RASH, 09/30/15) pepper (Verified Allergy, Mild, NAUSEA/VOMITING, 05/30/17) ROS General: YES: Fatigue Cardiovascular: yes Chest Pain Gastrointestinal: Yes Nausea, Yes Vomiting Musculoskeletal: Yes Muscle Pain Physical Exam General: mild distress HEENT: Atraumatic Lungs: Clear to auscultation Heart: Regular rate Abdomen: Normal bowel sounds Vitals VITALS Vital Signs Date Time Temp Pulse Resp B/P (MAP) Pulse Ox O2 Delivery O2 Flow Rate FiO2 05/30/17 11:00 97.3 63 18 130/49 (76) 98 Room Air 97.3 Labs Labs Laboratory Tests Test 05/29/17 14:10 05/29/17 21:00 05/30/17 03:30 White Blood Count 9.7 x10^3/uL (4.0-11.0) 6.5 x10^3/uL (4.0-11.0) Red Blood Count 3.68 x10^6/uL (3.50-5.40) 3.42 x10^6/uL (3.50-5.40) Hemoglobin 12.2 g/dL (12.0-15.5) 11.3 g/dL (12.0-15.5) Hematocrit 35.5 % (36.0-47.0) 33.1 % (36.0-47.0) Mean Corpuscular Volume 96 fL (79-100) 97 fL (79-100) Mean Corpuscular Hemoglobin 33 pg (25-35) 33 pg (25-35) Mean Corpuscular Hemoglobin Concent 35 g/dL (31-37) 34 g/dL (31-37) Red Cell Distribution Width 13.0 % (11.5-14.5) 13.3 % (11.5-14.5) Platelet Count 252 x10^3/uL (140-400) 222 x10^3/uL (140-400) Neutrophils (%) (Auto) 65 % (31-73) 90 % (31-73) Lymphocytes (%) (Auto) 30 % (24-48) 9 % (24-48) Monocytes (%) (Auto) 4 % (0-9) 1 % (0-9) Eosinophils (%) (Auto) 1 % (0-3) 0 % (0-3) Basophils (%) (Auto) 1 % (0-3) 0 % (0-3) Neutrophils # (Auto) 6.3 x10^3uL (1.8-7.7) 5.9 x10^3uL (1.8-7.7) Lymphocytes # (Auto) 2.9 x10^3/uL (1.0-4.8) 0.6 x10^3/uL (1.0-4.8) Monocytes # (Auto) 0.4 x10^3/uL (0.0-1.1) 0.1 x10^3/uL (0.0-1.1) Eosinophils # (Auto) 0.1 x10^3/uL (0.0-0.7) 0.0 x10^3/uL (0.0-0.7) Basophils # (Auto) 0.1 x10^3/uL (0.0-0.2) 0.0 x10^3/uL (0.0-0.2) Prothrombin Time 13.6 SEC (11.7-14.0) Prothromb Time International Ratio 1.1 (0.8-1.1) Activated Partial Thromboplast Time 28 SEC (24-38) Sodium Level 125 mmol/L (136-145) 127 mmol/L (136-145) Potassium Level 4.4 mmol/L (3.5-5.1) 4.5 mmol/L (3.5-5.1) Chloride Level 93 mmol/L (98-107) 94 mmol/L (98-107) Carbon Dioxide Level 23 mmol/L (21-32) 22 mmol/L (21-32) Anion Gap 9 (6-14) 11 (6-14) Blood Urea Nitrogen 15 mg/dL (7-20) 13 mg/dL (7-20) Creatinine 1.2 mg/dL (0.6-1.0) 1.0 mg/dL (0.6-1.0) Estimated GFR (Cockcroft-Gault) 43.0 53.1 Glucose Level 145 mg/dL (70-99) 145 mg/dL (70-99) Calcium Level 8.3 mg/dL (8.5-10.1) 8.1 mg/dL (8.5-10.1) Total Bilirubin 0.4 mg/dL (0.2-1.0) Direct Bilirubin 0.1 mg/dL (0.0-0.2) Aspartate Amino Transf (AST/SGOT) 17 U/L (15-37) Alanine Aminotransferase (ALT/SGPT) 19 U/L (14-59) Alkaline Phosphatase 83 U/L (46-116) Troponin I Quantitative < 0.017 ng/mL (0.000-0.055) < 0.017 ng/mL (0.000-0.055) < 0.017 ng/mL (0.000-0.055) IX-Fpx-B-Type Natriuretic Peptide 367 pg/mL (0-449) Total Protein 6.5 g/dL (6.4-8.2) Albumin 3.5 g/dL (3.4-5.0) Lipase 92 U/L (73-393) Segmented Neutrophils % 69 % (35-66) Band Neutrophils % 23 % (0-9) Lymphocytes % 6 % (24-48) Atypical Lymphocytes % (Manual) 1 % (0-0) Monocytes % 1 % (0-10) Platelet Estimate Adequate (ADEQUATE) Ovalocytes Few Laboratory Tests Test 05/29/17 21:00 05/30/17 03:30 Troponin I Quantitative < 0.017 ng/mL (0.000-0.055) < 0.017 ng/mL (0.000-0.055) White Blood Count 6.5 x10^3/uL (4.0-11.0) Red Blood Count 3.42 x10^6/uL (3.50-5.40) Hemoglobin 11.3 g/dL (12.0-15.5) Hematocrit 33.1 % (36.0-47.0) Mean Corpuscular Volume 97 fL (79-100) Mean Corpuscular Hemoglobin 33 pg (25-35) Mean Corpuscular Hemoglobin Concent 34 g/dL (31-37) Red Cell Distribution Width 13.3 % (11.5-14.5) Platelet Count 222 x10^3/uL (140-400) Neutrophils (%) (Auto) 90 % (31-73) Lymphocytes (%) (Auto) 9 % (24-48) Monocytes (%) (Auto) 1 % (0-9) Eosinophils (%) (Auto) 0 % (0-3) Basophils (%) (Auto) 0 % (0-3) Neutrophils # (Auto) 5.9 x10^3uL (1.8-7.7) Lymphocytes # (Auto) 0.6 x10^3/uL (1.0-4.8) Monocytes # (Auto) 0.1 x10^3/uL (0.0-1.1) Eosinophils # (Auto) 0.0 x10^3/uL (0.0-0.7) Basophils # (Auto) 0.0 x10^3/uL (0.0-0.2) Segmented Neutrophils % 69 % (35-66) Band Neutrophils % 23 % (0-9) Lymphocytes % 6 % (24-48) Atypical Lymphocytes % (Manual) 1 % (0-0) Monocytes % 1 % (0-10) Platelet Estimate Adequate (ADEQUATE) Ovalocytes Few Sodium Level 127 mmol/L (136-145) Potassium Level 4.5 mmol/L (3.5-5.1) Chloride Level 94 mmol/L (98-107) Carbon Dioxide Level 22 mmol/L (21-32) Anion Gap 11 (6-14) Blood Urea Nitrogen 13 mg/dL (7-20) Creatinine 1.0 mg/dL (0.6-1.0) Estimated GFR (Cockcroft-Gault) 53.1 Glucose Level 145 mg/dL (70-99) Calcium Level 8.1 mg/dL (8.5-10.1) Images Images Chest x-ray with mild cardiomegaly Assessment/Plan Assessment/Plan 1. Possible allergic reaction. Treatment as above. Patient has significantly improved. 2. Hypertension. Patient's blood pressures under better control. Echo will continue present medical treatment. 3. Atypical chest pain. No acute EKG changes. Troponin normal 3. Pain has resolved. However chest x-ray shows mild cardiomegaly. We'll continue present medications and check an echocardiogram. Thank you for allowing us to participate in the care of your patient. FUNMILAYO SKAGGS MD May 30, 2017 14:49
== END 2017-05-30 15:58 | disposition home or self-care (01) | DRG 915 ==
LOC: ER 14:03 → 2 SOUTH 15:35 → 4 NORTH 05-30 02:43
PROVIDERS: ADMIT Internal Medicine; ATTEND Internal Medicine
DX: T78.40XA Allergy, unspecified, initial encounter (principal); G93.40 Encephalopathy, unspecified; L81.0 Postinflammatory hyperpigmentation; L29.9 Pruritus, unspecified; E03.9 Hypothyroidism, unspecified; G89.29 Other chronic pain; M79.604 Pain in right leg; K59.00 Constipation, unspecified; I11.9 Hypertensive heart disease without heart failure; R07.89 Other chest pain; Z90.710 Acquired absence of both cervix and uterus; Z91.041 Radiographic dye allergy status; Z88.2 Allergy status to sulfonamides; Z91.018 Allergy to other foods; L50.9 Urticaria, unspecified
CPT/HCPCS: 36415; 71010; 80048; 80076; 83690; 83880; 84484; 85007; 85025; 85610; 85730; 93005; J1200; J2405; J2930; J7030; J7040; Q0163; S0028

== ENCOUNTER 2019-04-16 10:37 | Inpatient (IN) | payer BC, MEDICARE, OTHER ==
[~2019-04-16] VITALS: Ht 157.5 cm; Wt 74.8 kg
[~2019-04-16 10:37] MED LIST changes: +DIPH25CA58 PO; -DULO60CA44 PO; +DULO60CA45 PO; -GABA-586 PO; +GABA300C18 PO; +GABA600T7 PO; -LOSA25TA4 PO; +LOSA25TA54 PO; +NAPR-514 PO; -NAPR500T4 PO; -OXYC10TA45 PO; +OXYC10TA46 PO; -PANT40TA5 PO; +PANT40TA77 PO; +[UNRECOGNIZED DRUG - REMARK]; +[UNRECOGNIZED DRUG - REMARK]
[2019-04-16] MEDS ORDERED: PROCHLORPERAZINE 10 MG/2 ML VIAL. IV ONE ×2 (11:00→12:15)
--- NOTE | 2019-04-16 11:10 | PHYS DOC ---
Past Medical History Past Medical History: Constipation, Hypertension, Hypothyroid Additional Past Medical Histor: CHRONIC PAIN, RIGHT LEG, RIGHT HIP Past Surgical History: Hysterectomy, Other Additional Past Surgical Histo: BACK Alcohol Use: None Drug Use: None Adult General Chief Complaint Chief Complaint: NAUSEA/VOMITING/DIARRHA HPI HPI Patient is an 83-year-old female who presents to the emergency department for evaluation. She states that last night, at around 6 PM, she began experiencing some nausea and has vomited multiple times throughout the night. She also repo rts several episodes of small, loose stools, which have been nonbloody, as has her emesis. She DENIES having any abdominal pain. She states that she suffers from constipation chronically, and takes MiraLAX, which helps sometimes. She does have concern about her constipation, although she has been having bowel movements more frequent throughout the night. She denies any fevers, chills, chest pain, shortness of breath, dizziness, lightheadedness, numbness, or focal weakness. There are no alleviating or exacerbating factors to her symptoms. Review of Systems Review of Systems Constitutional: Denies fever or chills [] Eyes: Denies change in visual acuity, redness, or eye pain [] HENT: Denies nasal congestion or sore throat [] Respiratory: Denies cough or shortness of breath [] Cardiovascular: The patient denies any shortness of breath, chest pain, pal pitations, or orthopnea [] GI: Denies abdominal pain, bloody stools or bloody emesis[] : Denies dysuria or hematuria [] Musculoskeletal: Denies back pain or joint pain [] Integument: Denies rash or skin lesions [] Neurologic: Denies headache, focal weakness or sensory changes [] Endocrine: Denies polyuria or polydipsia [] All other systems were reviewed and found to be within normal limits, except as documented in this note. Current Medications Current Medications Current Medications Medications (Trade) Dose Ordered Sig/Henry Start Time Stop Time Status Last Admin Dose Admin Lorazepam (Ativan Inj) 0.5 mg 1X ONCE 04/16/19 12:15 04/16/19 12:16 DC 04/16/19 12:26 0.5 MG Losartan Potassium (Cozaar) 25 mg DAILY 04/16/19 13:00 04/16/19 13:16 25 MG Ondansetron HCl (Zofran) 4 mg 1X ONCE 04/16/19 13:30 04/16/19 13:35 DC 04/16/19 13:30 4 MG Prochlorperazine Edisylate (Compazine) 5 mg 1X ONCE 04/16/19 12:15 04/16/19 12:16 DC 04/16/19 12:27 5 MG Sodium Chloride 1,000 ml @ 100 mls/hr Q10H 04/16/19 11:00 04/16/19 20:59 04/16/19 12:26 100 MLS/HR Allergies Allergies Allergies Coded Allergies Type Severity Reaction Last Updated Verified Sulfa (Sulfonamide Antibiotics) Allergy Intermediate Rash 09/30/15 Yes estrogens, conjugated Allergy Intermediate Rash 06/04/17 Yes iodine Allergy Intermediate painful rash 09/30/15 Yes iohexol Allergy Intermediate PAINFUL RASH 09/30/15 Yes pepper Adverse Reaction Mild NAUSEA/VOMITING 06/04/17 Yes Physical Exam Physical Exam PHYSICAL EXAM: CONSTITUTIONAL: Well developed, well nourished HEAD: normocephalic, atraumatic EENT: PERRL, EOMI. Conjunctivae normal color, sclerae non-icteric; moist mucous membranes. NECK: Supple, non-tender; no meningismus. LUNGS: Lungs CTA, breathing even and unlabored. Normal air movement. HEART: Regular rate and rhythm, no murmur CHEST: No deformity; non-tender ABDOMEN: The abdomen is soft, and non-tender, no masses or bruits. Normal bowel sounds are present. EXTREM: Normal ROM; no deformity, no calf tenderness. Normal pulses palpable in all extremities. There is no pedal edema. SKIN: No rash; no diaphoresis NEURO: Alert; normal speech and cognition; CN's grossly intact; strength grossly intact without focal deficit. BACK: No CVA TTP. PSYCHIATRIC: The patient exhibits a moderately anxious affect. Current Patient Data Vital Signs Vital Signs Date Time Temp Pulse Resp B/P (MAP) Pulse Ox O2 Delivery O2 Flow Rate FiO2 04/16/19 14:00 56 20 211/81 (124) 98 Room Air 04/16/19 10:57 98.1 98.1 Lab Values Laboratory Tests Test 04/16/19 11:02 04/16/19 13:31 White Blood Count 4.8 x10^3/uL (4.0-11.0) Red Blood Count 3.63 x10^6/uL (3.50-5.40) Hemoglobin 12.2 g/dL (12.0-15.5) Hematocrit 35.0 % (36.0-47.0) L Mean Corpuscular Volume 97 fL (79-100) Mean Corpuscular Hemoglobin 34 pg (25-35) Mean Corpuscular Hemoglobin Concent 35 g/dL (31-37) Red Cell Distribution Width 13.1 % (11.5-14.5) Platelet Count 278 x10^3/uL (140-400) Neutrophils (%) (Auto) 74 % (31-73) H Lymphocytes (%) (Auto) 20 % (24-48) L Monocytes (%) (Auto) 6 % (0-9) Eosinophils (%) (Auto) 0 % (0-3) Basophils (%) (Auto) 0 % (0-3) Neutrophils # (Auto) 3.5 x10^3/uL (1.8-7.7) Lymphocytes # (Auto) 1.0 x10^3/uL (1.0-4.8) Monocytes # (Auto) 0.3 x10^3/uL (0.0-1.1) Eosinophils # (Auto) 0.0 x10^3/uL (0.0-0.7) Basophils # (Auto) 0.0 x10^3/uL (0.0-0.2) Sodium Level 129 mmol/L (136-145) L Potassium Level 4.1 mmol/L (3.5-5.1) Chloride Level 94 mmol/L (98-107) L Carbon Dioxide Level 27 mmol/L (21-32) Anion Gap 8 (6-14) Blood Urea Nitrogen 12 mg/dL (7-20) Creatinine 0.9 mg/dL (0.6-1.0) Estimated GFR (Cockcroft-Gault) 59.7 BUN/Creatinine Ratio 13 (6-20) Glucose Level 128 mg/dL (70-99) H Calcium Level 8.7 mg/dL (8.5-10.1) Total Bilirubin 0.6 mg/dL (0.2-1.0) Aspartate Amino Transferase (AST) 19 U/L (15-37) Alanine Aminotransferase (ALT) 14 U/L (14-59) Alkaline Phosphatase 90 U/L (46-116) Total Protein 7.6 g/dL (6.4-8.2) Albumin 3.9 g/dL (3.4-5.0) Albumin/Globulin Ratio 1.1 (1.0-1.7) Lipase 74 U/L (73-393) Urine Collection Type Unknown Urine Color Yellow Urine Clarity Clear Urine pH 7.0 Urine Specific [place] <=1.005 Urine Protein Negative mg/dL (NEG-TRACE) Urine Glucose (UA) Negative mg/dL (NEG) Urine Ketones (Stick) Negative mg/dL (NEG) Urine Blood Negative (NEG) Urine Nitrite Positive (NEG) Urine Bilirubin Negative (NEG) Urine Urobilinogen Dipstick 0.2 mg/dL (0.2 mg/dL) Urine Leukocyte Esterase Moderate (NEG) Urine RBC Occ /HPF (0-2) Urine WBC 11-20 /HPF (0-4) Urine Squamous Epithelial Cells Few /LPF Urine Bacteria Many /HPF (0-FEW) Laboratory Tests 04/16/19 11:02 Laboratory Tests 04/16/19 11:02 EKG EKG Normal sinus rhythm at a rate of 56 beats for minute, left axis deviation, left anterior fascicular block, right bundle-branch block, without acute ischemic ST/T changes.EKG is not significantly changed compared to patient's prior EKG.[] Radiology/Procedures Radiology/Procedures PROCEDURE: ACUTE ABDOMEN SERIES ACUTE ABDOMEN SERIES INDICATION: Abdominal pain, constipation. COMPARISON STUDY: 06/04/2017. FINDINGS: Lungs: Normal lung volume. No pulmonary mass or consolidation. The tracheobronchial tree and hilar structures are normal. Pleura: No pleural effusion or pneumothorax. Heart and Mediastinum: The cardiomediastinal silhouette is normal. The great vessels of the thorax are normal. Abdomen: Nonobstructive bowel gas pattern. No free air. Large colonic stool burden. Bones and Soft Tissues: Lumbosacral posterior instrumentation. Incompletely characterized lumbar spondylosis. IMPRESSION: Nonobstructive bowel gas pattern. Large colonic stool burden. No focal airspace disease. [] Course & Med Decision Making Course & Med Decision Making Pertinent Labs and Imaging studies reviewed. (See chart for details) []12:44 PM: The patient's condition remained stable. Her nausea is significantly improved. She continues to decline any pain. She is much more calm at this time. Her blood pressure is 2:15. She states that she did not take her blood pressure medication today. Her abdomen has been reexamined and is benign, without tenderness and normal bowel sounds. CONTINUE to monitor. EKG and troponin will be checked, although the suspicion for coronary disease as a cause of the patient's symptoms is very low. 2:05 PM: The patient's condition remained stable but she continues to have several episodes of vomiting intermittently, and appears calm in between the episodes of vomiting. The case was discussed with the hospitalist will admit the patient. A screening CT of her abdomen and pelvis will be obtained. Troponin is negative. CT is currently pending. Dragon Disclaimer Dragon Disclaimer This electronic medical record was generated, in whole or in part, using a voice recognition dictation system. Departure Departure Impression: Primary Impression: Intractable vomiting Additional Impressions: Hypertension UTI (urinary tract infection) Hyponatremia Disposition: ADMITTED INPATIENT Admitting Physician: HIMS Condition: STABLE Referrals: WILFREDO APODACA MD (PCP) Problem Qualifiers SUZANNE ACUNA MD Apr 16, 2019 11:10
[2019-04-16] MEDS: IV NORMAL SALINE 1000ML BAG 1,000 ML IV SCH ×2 (11:12→12:26)
[2019-04-16 11:20] LABS: CALCIUM 8.7 mg/dL (8.5-10.1); CREATININE 0.9 mg/dL (0.6-1.0); GFR 59.7; POTASSIUM 4.1 mmol/L (3.5-5.1)
[2019-04-16 11:26] LABS: ALBUMIN 3.9 g/dL (3.4-5.0); ALBUMIN/GLOBULIN RATIO 1.1 (1.0-1.7); TOTAL BILIRUBIN 0.6 mg/dL (0.2-1.0); TOTAL PROTEIN 7.6 g/dL (6.4-8.2)
[2019-04-16 11:39] LABS: BASO % 0 % (0-3); EOS % 0 % (0-3); HEMOGLOBIN 12.2 g/dL (12.0-15.5); LYMPH % 20 % (24-48); MEAN CORPUSCULAR HEMOGLOBIN 34 pg (25-35); MEAN CORPUSCULAR HGB CONC 35 g/dL (31-37); MEAN CORPUSCULAR VOLUME 97 fL (79-100); MONO # 0.3 x10^3/uL (0.0-1.1); MONO % 6 % (0-9); NEUT # 3.5 x10^3/uL (1.8-7.7); NEUT % 74 % (31-73); PLATELET COUNT 278 x10^3/uL (140-400); RED BLOOD COUNT 3.63 x10^6/uL (3.50-5.40); RED CELL DISTRIBUTION WIDTH 13.1 % (11.5-14.5); WHITE BLOOD COUNT 4.8 x10^3/uL (4.0-11.0)
--- NOTE | 2019-04-16 11:51 | RAD ---
ACUTE ABDOMEN SERIES INDICATION: Abdominal pain, constipation. COMPARISON STUDY: 06/04/2017. FINDINGS: Lungs: Normal lung volume. No pulmonary mass or consolidation. The tracheobronchial tree and hilar structures are normal. Pleura: No pleural effusion or pneumothorax. Heart and Mediastinum: The cardiomediastinal silhouette is normal. The great vessels of the thorax are normal. Abdomen: Nonobstructive bowel gas pattern. No free air. Large colonic stool burden. Bones and Soft Tissues: Lumbosacral posterior instrumentation. Incompletely characterized lumbar spondylosis. IMPRESSION: Nonobstructive bowel gas pattern. Large colonic stool burden. No focal airspace disease. Electronically signed by: Harvey Price MD (04/16/2019 11:49 AM) [id number]
[2019-04-16] MEDS: LOSARTAN POTASSIUM 25 MG TABLET. PO SCH (13:16)
[2019-04-16] MEDS ORDERED: ONDANSETRON PF 4 MG/2 ML VIAL. IV ONE (13:30)
[2019-04-16 13:37] LABS: BILIRUBIN,URINE NEGATIVE (NEG); CLARITY,URINE CLEAR; COLOR,URINE YELLOW; NITRITE,URINE POSITIVE (NEG); PROTEIN,URINE NEGATIVE (NEG-TRACE); UROBILINOGEN,URINE 0.2 mg/dL (0.2 mg/dL)
[2019-04-16 13:57] LABS: BACTERIA,URINE MANY /HPF (0-FEW); RBC,URINE OCC /HPF (0-2); SQUAMOUS EPITHELIAL CELL,UR FEW /LPF
[2019-04-16] MEDS ORDERED: ONDANSETRON PF 4 MG/2 ML VIAL. IV PRN ×2 (14:15→14:30)
--- NOTE | 2019-04-16 14:26 | PDOC1 ---
History and Physical Date of Admission Date of Admission DATE: 04/16/19 TIME: 14:23 Identification/Chief Complaint Chief Complaint Nausea and vomiting Source Source: Patient History of Present Illness History of Present Illness Ms Graves is an 83-year-old female w/ PMHx Constipation, Hypertension, Hypothyroid, Chronic pain who c/o Nausea and vomiting. She states that last night, at around 6 PM, she began experiencing some nausea and has vomited multiple times throughout the night. She also reports several episodes of small, loose stools, which have been nonbloody, as has her emesis. She does have abdominal pain, but only after vomiting. She states that she suffers from constipation chronically, and takes MiraLAX, which helps sometimes. She does have concern about her constipation, although she has been having bowel movements more frequent throughout the night. She denies any fevers, chills, chest pain, shortness of breath, dizziness, lightheadedness, numbness, or focal weakness. There are no alleviating or exacerbating factors to her symptoms. She does note she had been confused and hallucinating the past 3 days and had some dysuria at that time, but does not note this anymore. Na 129, nitrites and LE positive in urine. BP 236/117 initially in ED. Her friend bedside notes she has not been oriented the past few days. EKG shows - Normal sinus rhythm at a rate of 56 beats for minute, left axis deviation, left anterior fascicular block, right bundle-branch block, without acute ischemic ST/T changes.EKG is not significantly changed compared to patient's prior EKG. Past Medical History Cardiovascular: HTN Pulmonary: No pertinent hx GI: Constipation Heme/Onc: No pertinent hx Hepatobiliary: No pertinent hx Psych: No pertinent hx Musculoskeletal: low back pain Rheumatologic: No pertinent hx Infectious disease: No pertinent hx Renal/: No pertinent hx Endocrine: Hypothyroidism Dermatology: No pertinent hx Past Surgical History Past Surgical History: Hysterectomy, Other Family History Family History: No Significant Social History Smoke: No ALCOHOL: rare Current Problem List Problem List Problems Medical Problems: (1) Hypertension Status: Acute (2) Intractable vomiting Status: Acute Current Medications Current Medications Current Medications Sodium Chloride 1,000 ml @ 100 mls/hr Q10H IV Last administered on 04/16/19at 12:26; Start 04/16/19 at 11:00; Stop 04/16/19 at 20:59 Prochlorperazine Edisylate (Compazine) 5 mg 1X ONCE IV Last administered on 04/16/19at 11:12; Start 04/16/19 at 11:00; Stop 04/16/19 at 11:07; Status DC Lorazepam (Ativan Inj) 0.5 mg 1X ONCE IVP Last administered on 04/16/19at 11:12; Start 04/16/19 at 11:00; Stop 04/16/19 at 11:07; Status DC Prochlorperazine Edisylate (Compazine) 5 mg 1X ONCE IV Last administered on 04/16/19at 12:27; Start 04/16/19 at 12:15; Stop 04/16/19 at 12:16; Status DC Lorazepam (Ativan Inj) 0.5 mg 1X ONCE IVP Last administered on 04/16/19at 12:26; Start 04/16/19 at 12:15; Stop 04/16/19 at 12:16; Status DC Losartan Potassium (Cozaar) 25 mg DAILY PO Last administered on 04/16/19at 13:16; Start 04/16/19 at 13:00 Ondansetron HCl (Zofran) 4 mg 1X ONCE IV Last administered on 04/16/19at 13:30; Start 04/16/19 at 13:30; Stop 04/16/19 at 13:35; Status DC Ondansetron HCl (Zofran) 4 mg PRN Q8HRS PRN IV NAUSEA/VOMITING; Start 04/16/19 at 14:15; Stop 04/17/19 at 14:14 Dextrose/Lactated Ringer's 1,000 ml @ 75 mls/hr 1X ONCE IV ; Start 04/16/19 at 14:30; Stop 04/17/19 at 03:49 Active Scripts Active Reported [steroid taper] Gabapentin 600 Mg Tablet 600 Mg PO BID Vitamin D3 (Cholecalciferol (Vitamin D3)) 1,000 Unit Capsule 1,000 Unit PO DAILY Colace (Docusate Sodium) 100 Mg Capsule 1 Cap PO DAILY Miralax (Polyethylene Glycol 3350) 17 Gm Powd.pack 17 Gm PO DAILY Last dose given: 9:00 a.m. Losartan Potassium 25 Mg Tablet 50 Mg PO DAILY Last dose given: 9:00 a.m. Levothyroxine Sodium 75 Mcg Tablet 75 Mcg PO DAILY Last dose given: 7:00 a.m. Allergies Allergies: Coded Allergies: Sulfa (Sulfonamide Antibiotics) (Verified Allergy, Intermediate, Rash, 09/30/15) estrogens, conjugated (Verified Allergy, Intermediate, Rash, 06/04/17) iodine (Verified Allergy, Intermediate, painful rash, 09/30/15) pt states that she is sensitive to all chemicals iohexol (Verified Allergy, Intermediate, PAINFUL RASH, 09/30/15) pepper (Verified Adverse Reaction, Mild, NAUSEA/VOMITING, 06/04/17) ROS General: YES: Fatigue, Malaise, Appetite; No: Chills, Night Sweats, Other PSYCHOLOGICAL ROS: YES: Disorientation, Hallucinations; No: Anxiety, Behavioral Disorder, Concentration difficultie, Decreased libido, Depression, Hostility, Irritablity, Memory difficulties, Mood Swings, Obsessive thoughts, Physical abuse, Sexual abuse, Sleep disturbances, Suicidal ideation, Other Eyes: No Blurry vision, No Decreased vision, No Double vision, No Dry eyes, No Excessive tearing, No Eye Pain, No Itchy Eyes, No Loss of vision, No Photophobia, No Scotomata, No Uses contacts, No Uses glasses, No Other HEENT: No: Heacaches, Visual Changes, Hearing change, Nasal congestion, Nasal discharge, Oral lesions, Sinus pain, Sore Throat, Epistaxis, Sneezing, Snoring, Tinnitus, Vertigo, Vocal changes, Other ALLERGY AND IMMUNOLOGY: No: Hives, Insect Bite Sensitivity, Itchy/Watery Eyes, Nasal Congestion, Post Nasal Drip, Seasonal Allergies, Other Hematological and Lymphatic: No: Bleeding Problems, Blood Clots, Blood Transfusions, Brusing, Night Sweats, Pallor, Swollen Lymph Nodes, Other ENDOCRINE: No: Breast Changes, Galactorrhea, Hair Pattern Changes, Hot Flashes, Malaise/lethargy, Mood Swings, Palpitations, Polydipsia/polyuria, Skin Changes, Temperature Intolerance, Unexpected Weight Changes, Other Breast: No New/Changing Breast Lumps, No Nipple changes, No Nipple discharge, No Other Respiratory: No: Cough, Hemoptysis, Orthopnea, Pleuritic Pain, Shortness of breath, SOB with excertion, Sputum Changes, Stridor, Tachypnea, Wheezing, Other Cardiovascular: No Chest Pain, No Palpitations, No Orthopnea, No Paroxysmal Noc. Dyspnea, No Edema, No Lt Headedness, No Other Gastrointestinal: Yes Nausea, Yes Vomiting, Yes Abdominal Pain, Yes Const ipation; No Diarrhea, No Melena, No Hematochezia, No Other Genitourinary: YES Frequency, YES Retention; No Dysuria, No Incontinence, No Hematuria, No Discharge, No Urgency, No Pain, No Flank Pain, No Other, No , No , No , No , No , No , No Musculoskeletal: No Gait Disturbance, No Joint Pain, No Joint Stiffness, No Joint Swelling, No Muscle Pain, No Muscular Weakness, No Pain In:, No Swelling In:, No Other Neurological: Yes Confusion; No Behavorial Changes, No Bowel/Bladder ControlChng, No Dizziness, No Gait Disturbance, No Headaches, No Impaired Coord/balance, No Memory Loss, No Numbness/Tingling, No Seizures, No Speech Problems, No Tremors, No Visual Changes, No Weakness, No Other Skin: No Dry Skin, No Eczema, No Hair Changes, No Lumps, No Mole Changes, No Mottling, No Nail Changes, No Pruritus, No Rash, No Skin Lesion Changes, No Other, No Acne Physical Exam General: Alert, Cooperative, No acute distress HEENT: Atraumatic, PERRLA, EOMI, Mucous membr. moist/pink Lungs: Clear to auscultation, Normal air movement Heart: S1S2, RRR, no thrills, no rubs Abdomen: Normal bowel sounds, Soft, No hepatosplenomegaly, No masses, Other (LLQ tender) Rectal Exam: not examined Extremities: No clubbing, No cyanosis, No edema, Normal pulses, No tenderness/swelling Skin: No rashes, No breakdown, No significant lesion Neuro: Normal gait, Normal speech, Strength at 5/5 X4 ext, Normal tone, Sensation intact, Cranial nerves 3-12 NL, Reflexes 2+ Psych/Mental Status: Mental status NL, Mood NL Vitals Vitals Vital Signs Date Time Temp Pulse Resp B/P (MAP) Pulse Ox O2 Delivery O2 Flow Rate FiO2 04/16/19 13:16 56 175/76 04/16/19 10:57 98.1 18 100 Room Air 98.1 Labs Labs Laboratory Tests Test 04/16/19 11:02 04/16/19 13:31 White Blood Count 4.8 x10^3/uL (4.0-11.0) Red Blood Count 3.63 x10^6/uL (3.50-5.40) Hemoglobin 12.2 g/dL (12.0-15.5) Hematocrit 35.0 % (36.0-47.0) Mean Corpuscular Volume 97 fL (79-100) Mean Corpuscular Hemoglobin 34 pg (25-35) Mean Corpuscular Hemoglobin Concent 35 g/dL (31-37) Red Cell Distribution Width 13.1 % (11.5-14.5) Platelet Count 278 x10^3/uL (140-400) Neutrophils (%) (Auto) 74 % (31-73) Lymphocytes (%) (Auto) 20 % (24-48) Monocytes (%) (Auto) 6 % (0-9) Eosinophils (%) (Auto) 0 % (0-3) Basophils (%) (Auto) 0 % (0-3) Neutrophils # (Auto) 3.5 x10^3/uL (1.8-7.7) Lymphocytes # (Auto) 1.0 x10^3/uL (1.0-4.8) Monocytes # (Auto) 0.3 x10^3/uL (0.0-1.1) Eosinophils # (Auto) 0.0 x10^3/uL (0.0-0.7) Basophils # (Auto) 0.0 x10^3/uL (0.0-0.2) Sodium Level 129 mmol/L (136-145) Potassium Level 4.1 mmol/L (3.5-5.1) Chloride Level 94 mmol/L (98-107) Carbon Dioxide Level 27 mmol/L (21-32) Anion Gap 8 (6-14) Blood Urea Nitrogen 12 mg/dL (7-20) Creatinine 0.9 mg/dL (0.6-1.0) Estimated GFR (Cockcroft-Gault) 59.7 BUN/Creatinine Ratio 13 (6-20) Glucose Level 128 mg/dL (70-99) Calcium Level 8.7 mg/dL (8.5-10.1) Total Bilirubin 0.6 mg/dL (0.2-1.0) Aspartate Amino Transf (AST/SGOT) 19 U/L (15-37) Alanine Aminotransferase (ALT/SGPT) 14 U/L (14-59) Alkaline Phosphatase 90 U/L (46-116) Total Protein 7.6 g/dL (6.4-8.2) Albumin 3.9 g/dL (3.4-5.0) Albumin/Globulin Ratio 1.1 (1.0-1.7) Lipase 74 U/L (73-393) Urine Collection Type Unknown Urine Color Yellow Urine Clarity Clear Urine pH 7.0 Urine Specific Trilla <=1.005 Urine Protein Negative mg/dL (NEG-TRACE) Urine Glucose (UA) Negative mg/dL (NEG) Urine Ketones (Stick) Negative mg/dL (NEG) Urine Blood Negative (NEG) Urine Nitrite Positive (NEG) Urine Bilirubin Negative (NEG) Urine Urobilinogen Dipstick 0.2 mg/dL (0.2 mg/dL) Urine Leukocyte Esterase Moderate (NEG) Urine RBC Occ /HPF (0-2) Urine WBC 11-20 /HPF (0-4) Urine Squamous Epithelial Cells Few /LPF Urine Bacteria Many /HPF (0-FEW) Laboratory Tests Test 04/16/19 11:02 04/16/19 13:31 White Blood Count 4.8 x10^3/uL (4.0-11.0) Red Blood Count 3.63 x10^6/uL (3.50-5.40) Hemoglobin 12.2 g/dL (12.0-15.5) Hematocrit 35.0 % (36.0-47.0) Mean Corpuscular Volume 97 fL (79-100) Mean Corpuscular Hemoglobin 34 pg (25-35) Mean Corpuscular Hemoglobin Concent 35 g/dL (31-37) Red Cell Distribution Width 13.1 % (11.5-14.5) Platelet Count 278 x10^3/uL (140-400) Neutrophils (%) (Auto) 74 % (31-73) Lymphocytes (%) (Auto) 20 % (24-48) Monocytes (%) (Auto) 6 % (0-9) Eosinophils (%) (Auto) 0 % (0-3) Basophils (%) (Auto) 0 % (0-3) Neutrophils # (Auto) 3.5 x10^3/uL (1.8-7.7) Lymphocytes # (Auto) 1.0 x10^3/uL (1.0-4.8) Monocytes # (Auto) 0.3 x10^3/uL (0.0-1.1) Eosinophils # (Auto) 0.0 x10^3/uL (0.0-0.7) Basophils # (Auto) 0.0 x10^3/uL (0.0-0.2) Sodium Level 129 mmol/L (136-145) Potassium Level 4.1 mmol/L (3.5-5.1) Chloride Level 94 mmol/L (98-107) Carbon Dioxide Level 27 mmol/L (21-32) Anion Gap 8 (6-14) Blood Urea Nitrogen 12 mg/dL (7-20) Creatinine 0.9 mg/dL (0.6-1.0) Estimated GFR (Cockcroft-Gault) 59.7 BUN/Creatinine Ratio 13 (6-20) Glucose Level 128 mg/dL (70-99) Calcium Level 8.7 mg/dL (8.5-10.1) Total Bilirubin 0.6 mg/dL (0.2-1.0) Aspartate Amino Transf (AST/SGOT) 19 U/L (15-37) Alanine Aminotransferase (ALT/SGPT) 14 U/L (14-59) Alkaline Phosphatase 90 U/L (46-116) Total Protein 7.6 g/dL (6.4-8.2) Albumin 3.9 g/dL (3.4-5.0) Albumin/Globulin Ratio 1.1 (1.0-1.7) Lipase 74 U/L (73-393) Urine Collection Type Unknown Urine Color Yellow Urine Clarity Clear Urine pH 7.0 Urine Specific Trilla <=1.005 Urine Protein Negative mg/dL (NEG-TRACE) Urine Glucose (UA) Negative mg/dL (NEG) Urine Ketones (Stick) Negative mg/dL (NEG) Urine Blood Negative (NEG) Urine Nitrite Positive (NEG) Urine Bilirubin Negative (NEG) Urine Urobilinogen Dipstick 0.2 mg/dL (0.2 mg/dL) Urine Leukocyte Esterase Moderate (NEG) Urine RBC Occ /HPF (0-2) Urine WBC 11-20 /HPF (0-4) Urine Squamous Epithelial Cells Few /LPF Urine Bacteria Many /HPF (0-FEW) Images Images ACUTE ABDOMEN SERIES XR - Lungs: Normal lung volume. No pulmonary mass or consolidation. The tracheobronchial tree and hilar structures are normal. Pleura: No pleural effusion or pneumothorax. Heart and Mediastinum: The cardiomediastinal silhouette is normal. The great vessels of the thorax are normal. Abdomen: Nonobstructive bowel gas pattern. No free air. Large colonic stool burden. Bones and Soft Tissues: Lumbosacral posterior instrumentation. Incompletely characterized lumbar spondylosis. IMPRESSION: Nonobstructive bowel gas pattern. Large colonic stool burden. No focal airspace disease. CT abdomen/Pelvis - There is a small calcified granuloma at the right lung base. The heart size is borderline enlarged with no pericardial effusion evident. No abnormality seen at the liver, gallbladder, spleen, adrenal glands or pancreas. The abdominal aorta and inferior vena cava show no acute abnormalities but there is arteriosclerotic vascular calcification. There is a small hiatal hernia. The stomach shows no wall thickening nor obstruction. No abnormality seen at the duodenum. The small intestinal tract shows no abnormal wall thickening, dilatation or evidence of bowel obstruction. There is no evidence of diverticulosis or diverticulitis. The appendix is not identified. The kidneys show no renal masses, renal calculi, hydronephrosis or evidence of obstructive uropathy. No abnormality seen at the bladder. There are calcifications in the pelvis consistent with phleboliths. No abnormality seen at the vaginal cuff. No free fluid or free air is seen in the abdomen or pelvis. There are postop changes in the lumbosacral spine with pedicle screws and rods from L3 through S1. No other acute bony abnormalities are evident. IMPRESSION: Borderline cardiomegaly. Small hiatal hernia. No evidence of renal calculus or obstructive uropathy. No acute abnormalities in the abdomen or pelvis. VTE Prophylaxis Ordered VTE Prophylaxis Devices: Yes VTE Pharmacological Prophylaxi: No Assessment/Plan Assessment/Plan A/P: Intractable nausea and vomiting - possibly 2/2 UTI, constipation. Will treat both, IV antiemetics for now Acute encephalopathy - likely 2/2 UTI, no dementia history I can find in medical records Constipation - moderately severe, will place on bowel regimen UTI - notable for +LE and +Nitrites, symptomatically vomiting. IV rocephin Hyponatremia - likely 2/2 diet, not on diuretics. Will trend. 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
[2019-04-16] MEDS ORDERED: BISACODYL 10 MG SUPP.RECT. PR PRN (14:30)
[2019-04-16] MEDS ORDERED: IV DEXTROSE 5%-LACT RINGERS 1,000 ML IV ONE (14:30)
[2019-04-16] MEDS ORDERED: cefTRIAXone IV Push 1 GM VIAL. IVP ONE (14:45)
--- NOTE | 2019-04-16 14:46 | RAD ---
CT abdomen and pelvis without contrast: Reason for examination: Intractable nausea and vomiting. Comparison is made to previous study dated 06/04/2017. Helical images were obtained through the abdomen and pelvis with no intravenous or oral contrast administered. Reconstruction was performed in sagittal and coronal planes. Exposure: One or more of the following individualized dose reduction techniques were utilized for this examination: 1. Automated exposure control 2. Adjustment of the mA and/or kV according to patient size 3. Use of iterative reconstruction technique. There is a small calcified granuloma at the right lung base. The heart size is borderline enlarged with no pericardial effusion evident. No abnormality seen at the liver, gallbladder, spleen, adrenal glands or pancreas. The abdominal aorta and inferior vena cava show no acute abnormalities but there is arteriosclerotic vascular calcification. There is a small hiatal hernia. The stomach shows no wall thickening nor obstruction. No abnormality seen at the duodenum. The small intestinal tract shows no abnormal wall thickening, dilatation or evidence of bowel obstruction. There is no evidence of diverticulosis or diverticulitis. The appendix is not identified. The kidneys show no renal masses, renal calculi, hydronephrosis or evidence of obstructive uropathy. No abnormality seen at the bladder. There are calcifications in the pelvis consistent with phleboliths. No abnormality seen at the vaginal cuff. No free fluid or free air is seen in the abdomen or pelvis. There are postop changes in the lumbosacral spine with pedicle screws and rods from L3 through S1. No other acute bony abnormalities are evident. IMPRESSION: Borderline cardiomegaly. Small hiatal hernia. No evidence of renal calculus or obstructive uropathy. No acute abnormalities in the abdomen or pelvis. Electronically signed by: Candice Shore MD (04/16/2019 2:43 PM) [facility]
[2019-04-16 15:00] VITALS: BP 187/61
[2019-04-16] MEDS: ENOXAPARIN 40 MG/0.4 ML SYRINGE. SQ SCH (15:00)
[2019-04-16] MEDS ORDERED: MORPHINE SULFATE 2 MG/ML VIAL. IV PRN (16:00)
[2019-04-16] MEDS ORDERED: ONDANSETRON ODT 4 MG TAB.RAPDIS. PO PRN (16:00)
[2019-04-16] MEDS ORDERED: hydrALAZINE 20 MG/ML VIAL. IVP PRN (16:00)
[2019-04-16] MEDS ORDERED: TRAM50TA PO (18:12)
[2019-04-16 19:00] VITALS: BP 170/56
[2019-04-16] MEDS: PSYLLIUM HUSK (SUGAR FREE) 1 PKT PACKET PO SCH (20:43)
[2019-04-16] MEDS: GABAPENTIN 300 MG CAPSULE. PO SCH (22:56)
[2019-04-16 23:08] VITALS: BP 159/45
[2019-04-17 03:00] VITALS: BP 149/50
[2019-04-17 05:03] LABS: CALCIUM 8.3 mg/dL (8.5-10.1); CREATININE 0.9 mg/dL (0.6-1.0); GFR 59.7; POTASSIUM 3.7 mmol/L (3.5-5.1)
[2019-04-17] MEDS: LEVOTHYROXINE 75 MCG TABLET PO SCH (06:05)
[2019-04-17 07:00] VITALS: BP 143/74
--- NOTE | 2019-04-17 07:47 | EKG ---
[facility] [address] [place] [address] Test Date: 2019-04-16 Test Time: 12:54:51 Pat Name: MAGI KEANE Department: Room: Gender: F [employer]: : [id number] Requested By: SUZANNE ACUNA Order Number: [id number] Reading MD: Measurements Intervals [place] Rate: 56 P: 29 CO: 144 QRS: -53 QRSD: 142 T: 17 QT: 484 QTc: 469 Interpretive Statements SINUS RHYTHM ABNORMAL LEFT AXIS DEVIATION LEFT ANTERIOR FASCICULAR BLOCK RIGHT BUNDLE BRANCH BLOCK BIFASCICULAR BLOCK NON SPECIFIC ST-T ABNORMALITY (ELEVATION) ABNORMAL ECG No previous ECG available for comparison
[2019-04-17] MEDS ORDERED: ACETAMINOPHEN 500 MG TABLET PO PRN (08:00)
[2019-04-17] MEDS ORDERED: MAGNESIUM HYDROXIDE 2,400 MG/30 ML ORAL.SUSP. PO PRN (08:00)
[2019-04-17] MEDS ORDERED: BISACODYL 10 MG SUPP.RECT. PR PRN (08:00)
[2019-04-17] MEDS ORDERED: ACETAMINOPHEN/CODEINE 300/30MG TABLET. PO PRN (08:00)
[2019-04-17] MEDS: DOCUSATE SODIUM 100 MG CAPSULE. PO SCH (08:39)
[2019-04-17] MEDS: cefTRIAXone IV Push 1 GM VIAL. IVP SCH (08:39)
[2019-04-17] MEDS: LOSARTAN POTASSIUM 25 MG TABLET. PO SCH (08:40)
[2019-04-17] MEDS: POLYETHYLENE GLYCOL 3350 17 GM PACKET. PO SCH (08:40)
[2019-04-17] MEDS: GABAPENTIN 300 MG CAPSULE. PO SCH ×2 (08:40→20:23)
[2019-04-17 11:00] VITALS: BP 144/48
--- NOTE | 2019-04-17 11:06 | PDOC ---
PROGRESS NOTES Chief Complaint Chief Complaint Intractable nausea and vomiting - possibly 2/2 UTI, constipation. Will treat both, IV antiemetics for now Acute encephalopathy - likely 2/2 UTI, no dementia history I can find in medical records Constipation - moderately severe,, stool burden visible on CT UTI - notable for +LE and +Nitrites, symptomatically vomiting. IV rocephin Hyponatremia - likely 2/2 diet, not on diuretics. Will trend. 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 CT shows stool burden SHe does have uti and seems to be symptomatic - hx recurrent uti she claims LIves at home with a no more nausea emesis and ate breakfast good today PLAN: Add PT OT COnt rocephin for now Await urine cx If constipated, enema today dw RN Kojo FULL CODE home meds have been reconciled Vitals Vitals Vital Signs Date Time Temp Pulse Resp B/P (MAP) Pulse Ox O2 Delivery O2 Flow Rate FiO2 04/17/19 08:40 68 149/50 04/17/19 08:00 Room Air 04/17/19 07:00 97.8 18 97 97.8 Physical Exam General: Alert, Cooperative, No acute distress Abdomen: Normal bowel sounds, Soft, No hepatosplenomegaly, No masses, Other (LLQ tender) Extremities: No clubbing, No cyanosis, No edema, Normal pulses, No tenderness/swelling Skin: No rashes, No breakdown, No significant lesion Labs LABS Laboratory Tests Test 04/16/19 13:31 04/16/19 14:46 04/17/19 04:00 Urine Collection Type Unknown Urine Color Yellow Urine Clarity Clear Urine pH 7.0 Urine Specific [place] <=1.005 Urine Protein Negative mg/dL (NEG-TRACE) Urine Glucose (UA) Negative mg/dL (NEG) Urine Ketones (Stick) Negative mg/dL (NEG) Urine Blood Negative (NEG) Urine Nitrite Positive (NEG) Urine Bilirubin Negative (NEG) Urine Urobilinogen Dipstick 0.2 mg/dL (0.2 mg/dL) Urine Leukocyte Esterase Moderate (NEG) Urine RBC Occ /HPF (0-2) Urine WBC 11-20 /HPF (0-4) Urine Squamous Epithelial Cells Few /LPF Urine Bacteria Many /HPF (0-FEW) Bedside Troponin I 0.01 ng/ml (<0.08) Sodium Level 132 mmol/L (136-145) Potassium Level 3.7 mmol/L (3.5-5.1) Chloride Level 98 mmol/L (98-107) Carbon Dioxide Level 26 mmol/L (21-32) Anion Gap 8 (6-14) Blood Urea Nitrogen 11 mg/dL (7-20) Creatinine 0.9 mg/dL (0.6-1.0) Estimated GFR (Cockcroft-Gault) 59.7 Glucose Level 145 mg/dL (70-99) Calcium Level 8.3 mg/dL (8.5-10.1) Review of Systems Review of Systems urinary pain? constipated? weak, all else neg 14pt Assessment and Plan Assessmemt and Plan Problems Medical Problems: (1) Hypertension Status: Acute (2) Hyponatremia Status: Acute (3) Intractable vomiting Status: Acute (4) UTI (urinary tract infection) Status: Acute Comment Review of Relevant I have reviewed the following items abelino (where applicable) has been applied. Labs Laboratory Tests Test 04/16/19 11:02 04/16/19 13:31 04/16/19 14:46 04/17/19 04:00 White Blood Count 4.8 x10^3/uL (4.0-11.0) Red Blood Count 3.63 x10^6/uL (3.50-5.40) Hemoglobin 12.2 g/dL (12.0-15.5) Hematocrit 35.0 % (36.0-47.0) Mean Corpuscular Volume 97 fL (79-100) Mean Corpuscular Hemoglobin 34 pg (25-35) Mean Corpuscular Hemoglobin Concent 35 g/dL (31-37) Red Cell Distribution Width 13.1 % (11.5-14.5) Platelet Count 278 x10^3/uL (140-400) Neutrophils (%) (Auto) 74 % (31-73) Lymphocytes (%) (Auto) 20 % (24-48) Monocytes (%) (Auto) 6 % (0-9) Eosinophils (%) (Auto) 0 % (0-3) Basophils (%) (Auto) 0 % (0-3) Neutrophils # (Auto) 3.5 x10^3/uL (1.8-7.7) Lymphocytes # (Auto) 1.0 x10^3/uL (1.0-4.8) Monocytes # (Auto) 0.3 x10^3/uL (0.0-1.1) Eosinophils # (Auto) 0.0 x10^3/uL (0.0-0.7) Basophils # (Auto) 0.0 x10^3/uL (0.0-0.2) Sodium Level 129 mmol/L (136-145) 132 mmol/L (136-145) Potassium Level 4.1 mmol/L (3.5-5.1) 3.7 mmol/L (3.5-5.1) Chloride Level 94 mmol/L (98-107) 98 mmol/L (98-107) Carbon Dioxide Level 27 mmol/L (21-32) 26 mmol/L (21-32) Anion Gap 8 (6-14) 8 (6-14) Blood Urea Nitrogen 12 mg/dL (7-20) 11 mg/dL (7-20) Creatinine 0.9 mg/dL (0.6-1.0) 0.9 mg/dL (0.6-1.0) Estimated GFR (Cockcroft-Gault) 59.7 59.7 BUN/Creatinine Ratio 13 (6-20) Glucose Level 128 mg/dL (70-99) 145 mg/dL (70-99) Calcium Level 8.7 mg/dL (8.5-10.1) 8.3 mg/dL (8.5-10.1) Total Bilirubin 0.6 mg/dL (0.2-1.0) Aspartate Amino Transf (AST/SGOT) 19 U/L (15-37) Alanine Aminotransferase (ALT/SGPT) 14 U/L (14-59) Alkaline Phosphatase 90 U/L (46-116) Total Protein 7.6 g/dL (6.4-8.2) Albumin 3.9 g/dL (3.4-5.0) Albumin/Globulin Ratio 1.1 (1.0-1.7) Lipase 74 U/L (73-393) Urine Collection Type Unknown Urine Color Yellow Urine Clarity Clear Urine pH 7.0 Urine Specific [place] <=1.005 Urine Protein Negative mg/dL (NEG-TRACE) Urine Glucose (UA) Negative mg/dL (NEG) Urine Ketones (Stick) Negative mg/dL (NEG) Urine Blood Negative (NEG) Urine Nitrite Positive (NEG) Urine Bilirubin Negative (NEG) Urine Urobilinogen Dipstick 0.2 mg/dL (0.2 mg/dL) Urine Leukocyte Esterase Moderate (NEG) Urine RBC Occ /HPF (0-2) Urine WBC 11-20 /HPF (0-4) Urine Squamous Epithelial Cells Few /LPF Urine Bacteria Many /HPF (0-FEW) Bedside Troponin I 0.01 ng/ml (<0.08) Laboratory Tests Test 04/16/19 13:31 04/16/19 14:46 04/17/19 04:00 Urine Collection Type Unknown Urine Color Yellow Urine Clarity Clear Urine pH 7.0 Urine Specific [place] <=1.005 Urine Protein Negative mg/dL (NEG-TRACE) Urine Glucose (UA) Negative mg/dL (NEG) Urine Ketones (Stick) Negative mg/dL (NEG) Urine Blood Negative (NEG) Urine Nitrite Positive (NEG) Urine Bilirubin Negative (NEG) Urine Urobilinogen Dipstick 0.2 mg/dL (0.2 mg/dL) Urine Leukocyte Esterase Moderate (NEG) Urine RBC Occ /HPF (0-2) Urine WBC 11-20 /HPF (0-4) Urine Squamous Epithelial Cells Few /LPF Urine Bacteria Many /HPF (0-FEW) Bedside Troponin I 0.01 ng/ml (<0.08) Sodium Level 132 mmol/L (136-145) Potassium Level 3.7 mmol/L (3.5-5.1) Chloride Level 98 mmol/L (98-107) Carbon Dioxide Level 26 mmol/L (21-32) Anion Gap 8 (6-14) Blood Urea Nitrogen 11 mg/dL (7-20) Creatinine 0.9 mg/dL (0.6-1.0) Estimated GFR (Cockcroft-Gault) 59.7 Glucose Level 145 mg/dL (70-99) Calcium Level 8.3 mg/dL (8.5-10.1) Medications Current Medications Sodium Chloride 1,000 ml @ 100 mls/hr Q10H IV Last administered on 04/16/19at 12:26; Start 04/16/19 at 11:00; Stop 04/16/19 at 20:59; Status DC Prochlorperazine Edisylate (Compazine) 5 mg 1X ONCE IV Last administered on 04/16/19at 11:12; Start 04/16/19 at 11:00; Stop 04/16/19 at 11:07; Status DC Lorazepam (Ativan Inj) 0.5 mg 1X ONCE IVP Last administered on 04/16/19at 11:12; Start 04/16/19 at 11:00; Stop 04/16/19 at 11:07; Status DC Prochlorperazine Edisylate (Compazine) 5 mg 1X ONCE IV Last administered on 04/16/19at 12:27; Start 04/16/19 at 12:15; Stop 04/16/19 at 12:16; Status DC Lorazepam (Ativan Inj) 0.5 mg 1X ONCE IVP Last administered on 04/16/19at 12:26; Start 04/16/19 at 12:15; Stop 04/16/19 at 12:16; Status DC Losartan Potassium (Cozaar) 25 mg DAILY PO Last administered on 04/17/19at 08:40; Start 04/16/19 at 13:00 Ondansetron HCl (Zofran) 4 mg 1X ONCE IV Last administered on 04/16/19at 13:30; Start 04/16/19 at 13:30; Stop 04/16/19 at 13:35; Status DC Ondansetron HCl (Zofran) 4 mg PRN Q8HRS PRN IV NAUSEA/VOMITING; Start 04/16/19 at 14:15; Stop 04/16/19 at 14:23; Status DC Dextrose/Lactated Ringer's 1,000 ml @ 75 mls/hr 1X ONCE IV Last administered on 04/16/19at 15:53; Start 04/16/19 at 14:30; Stop 04/17/19 at 03:49; Status DC Ondansetron HCl (Zofran) 4 mg PRN Q6HRS PRN IV NAUSEA/VOMITING Last administered on 04/16/19 21:10; Start 04/16/19 at 14:30 Docusate Sodium (Colace) 100 mg DAILY PO Last administered on 04/17/19 08:39; Start 04/17/19 at 09:00 Levothyroxine Sodium (Synthroid) 75 mcg DAILY07 PO Last administered on 04/17/19 06:05; Start 04/17/19 at 07:00 Polyethylene Glycol (miraLAX PACKET) 17 gm DAILY PO Last administered on 04/17/19 08:40; Start 04/17/19 at 09:00 Psyllium Hydrophilic Mucilloid (Metamucil Fiber Packet) 1 pkt QHS PO Last administered on 04/16/19 20:43; Start 04/16/19 at 21:00 Bisacodyl (Dulcolax Supp) 10 mg PRN DAILY PRN SC CONSTIPATION; Start 04/16/19 at 14:30 Enoxaparin Sodium (Lovenox 40mg Syringe) 40 mg Q24H SQ ; Start 04/16/19 at 15:00 Ceftriaxone Sodium (Rocephin) 1 gm 1X ONCE IVP Last administered on 04/16/19 14:49; Start 04/16/19 at 14:45; Stop 04/16/19 at 14:46; Status DC Hydralazine HCl (Apresoline Inj) 10 mg PRN Q4HRS PRN IVP ELEVATED BP, SEE COMMENTS Last administered on 04/16/19 20:44; Start 04/16/19 at 16:00 Ceftriaxone Sodium (Rocephin) 1 gm Q24H IVP Last administered on 04/17/19 08:39; Start 04/17/19 at 09:00 Morphine Sulfate (Morphine Sulfate) 2 mg PRN Q2HR PRN IV PAIN Last administered on 04/16/19 22:35; Start 04/16/19 at 16:00 Ondansetron HCl (Zofran Odt) 4 mg PRN Q6HRS PRN PO NAUSEA/VOMITING; Start 04/16 at 16:00 Gabapentin (Neurontin) 600 mg BID PO Last administered on 04/17/19 08:40; Start 04/16/19 at 22:45 Magnesium Hydroxide (Milk Of Magnesia) 2,400 mg PRN DAILY PRN PO CONSTIPATION; Start 04/17/19 at 08:00 Bisacodyl (Dulcolax Supp) 10 mg PRN DAILY PRN SC CONSTIPATION; Start 04/17/19 at 08:00 Acetaminophen (Tylenol) 500 mg PRN Q6HRS PRN PO MILD PAIN / TEMP; Start at 08:00 Acetaminophen/ Codeine Phosphate (Tylenol #3) 1 tab PRN Q6HRS PRN PO MODERATE - SEVERE PAIN; Start 04/17/19 at 08:00 Active Scripts Active Reported Tramadol Hcl 50 Mg Tablet 50 Mg PO PRN BID PRN [steroid taper] Gabapentin 600 Mg Tablet 600 Mg PO BID Vitamin D3 (Cholecalciferol (Vitamin D3)) 1,000 Unit Capsule 1,000 Unit PO DAILY Colace (Docusate Sodium) 100 Mg Capsule 1 Cap PO DAILY Miralax (Polyethylene Glycol 3350) 17 Gm Powd.pack 17 Gm PO DAILY Last dose given: 9:00 a.m. Losartan Potassium (Losartan Potassium) 25 Mg Tablet 50 Mg PO BID Last dose given: 9:00 a.m. Levothyroxine Sodium 75 Mcg Tablet 75 Mcg PO DAILY Last dose given: 7:00 a.m. Vitals/I & O Vital Sign - Last 24 Hours 04/16/19 04/16/19 04/16/19 04/16/19 12:00 13:00 13:16 14:00 Pulse 64 56 56 56 Resp 20 20 20 B/P (MAP) 196/81 (119) 215/84 (127) 175/76 211/81 (124) Pulse Ox 95 98 98 O2 Delivery Room Air Room Air Room Air 04/16/19 04/16/19 04/16/19 04/16/19 15:00 16:00 19:00 20:30 Temp 97.8 97.8 Pulse 56 64 Resp 18 20 B/P (MAP) 187/61 (103) 170/56 (94) Pulse Ox 95 98 O2 Delivery Room Air Room Air Room Air Room Air 04/16/19 04/16/19 04/16/19 04/16/19 20:44 22:35 23:08 23:16 Temp 97.6 97.6 Pulse 62 75 Resp 16 16 16 B/P (MAP) 189/60 159/45 (83) Pulse Ox 94 O2 Delivery Room Air Room Air 04/17/19 04/17/19 04/17/19 04/17/19 03:00 07:00 08:00 08:40 Temp 97.5 97.8 97.5 97.8 Pulse 68 58 68 Resp 18 18 B/P (MAP) 149/50 (83) 143/74 (97) 149/50 Pulse Ox 96 97 O2 Delivery Room Air Room Air Intake and Output 04/16/19 04/16/19 04/17/19 15:00 23:00 07:00 Intake Total 1000 ml 300 ml 2575 ml Balance 1000 ml 300 ml 2575 ml STIVEN JOYA MD Apr 17, 2019 11:06
[2019-04-17] MEDS ORDERED: DOCUSATE SODIUM 283 MG/5 ML ENEMA. PR ONE (11:30)
--- NOTE | 2019-04-17 12:56 | NUR ---
SW following for discharge planning needs. Chart reviewed, discussed with RN. Pt is from home with , gets around okay. RN advised pt needs to have a BM so can discharge home. RN advised no SW needs at this time. SW will continue to follow.
[2019-04-17 15:00] VITALS: BP 129/48
[2019-04-17] MEDS: ENOXAPARIN 40 MG/0.4 ML SYRINGE. SQ SCH (16:10)
[2019-04-17 19:00] VITALS: BP 127/41
[2019-04-17] MEDS: LACTOBACILLUS RHAMNOSUS GG 1 CAPSULE. PO SCH (20:22)
[2019-04-17] MEDS: PSYLLIUM HUSK (SUGAR FREE) 1 PKT PACKET PO SCH (20:22)
[2019-04-17 23:00] VITALS: BP 134/53
[2019-04-18 03:00] VITALS: BP 149/47
[2019-04-18] MEDS: LEVOTHYROXINE 75 MCG TABLET PO SCH (05:55)
[2019-04-18 06:54] LABS: CALCIUM 8.3 mg/dL (8.5-10.1); GFR 52.8; POTASSIUM 4.1 mmol/L (3.5-5.1)
[2019-04-18 07:00] VITALS: BP 150/53
[2019-04-18] MEDS ORDERED: ONDA4TAB12 PO (08:52)
[2019-04-18] MEDS ORDERED: CIPR500T94 PO (08:52)
[2019-04-18] MEDS ORDERED: PHEN100T82 PO (08:52)
[2019-04-18] MEDS: cefTRIAXone IV Push 1 GM VIAL. IVP SCH (09:14)
[2019-04-18] MEDS: DOCUSATE SODIUM 100 MG CAPSULE. PO SCH (09:15)
[2019-04-18] MEDS: LOSARTAN POTASSIUM 25 MG TABLET. PO SCH (09:15)
[2019-04-18] MEDS: LACTOBACILLUS RHAMNOSUS GG 1 CAPSULE. PO SCH (09:15)
[2019-04-18] MEDS: POLYETHYLENE GLYCOL 3350 17 GM PACKET. PO SCH (09:15)
[2019-04-18] MEDS: GABAPENTIN 300 MG CAPSULE. PO SCH ×2 (09:15→09:22)
[2019-04-18 11:00] VITALS: BP 114/58
[2019-04-18] MEDS ORDERED: DOCUSATE SODIUM 283 MG/5 ML ENEMA. PR ONE (11:00)
--- NOTE | 2019-04-18 11:31 | PDOC3 ---
Discharge Summary Visit Information Date of Admission: Apr 16, 2019 Date of Discharge: Apr 18, 2019 Admitting Diagnosis Comment: Uncomplicated UTI, symptomatic transient enceph in the background of UTI, resolved COnstipation, resolved N/.v resolved - neg CT Accelerated hypertension - POA< resolved Hypothyroidism - cont home meds, Chronic pain - s/p lumbar surgery, currently controlled Final Diagnosis Problems Medical Problems: (1) Abnormal EKG Status: Acute (2) Accelerated hypertension Status: Acute (3) Acute encephalopathy Status: Acute (4) Blood glucose elevated Status: Acute (5) Chronic pain Status: Acute (6) Constipation Status: Chronic (7) Hypertension Status: Acute (8) Hyponatremia Status: Acute (9) Hyponatremia Status: Chronic (10) Hypothyroidism Status: Chronic (11) Intractable nausea and vomiting Status: Acute (12) Intractable vomiting Status: Acute (13) UTI (urinary tract infection) Status: Acute (14) UTI (urinary tract infection) Status: Acute Brief Hospital Course Allergies Allergies Coded Allergies Type Severity Reaction Last Updated Verified Sulfa (Sulfonamide Antibiotics) Allergy Intermediate Rash 09/30/15 Yes estrogens, conjugated Allergy Intermediate Rash 06/04/17 Yes iodine Allergy Intermediate painful rash 09/30/15 Yes iohexol Allergy Intermediate PAINFUL RASH 09/30/15 Yes pepper Adverse Reaction Mild NAUSEA/VOMITING 06/04/17 Yes Vital Signs Vital Signs Date Time Temp Pulse Resp B/P (MAP) Pulse Ox O2 Delivery O2 Flow Rate FiO2 04/18/19 09:15 54 150/53 04/18/19 07:00 97.7 16 97 Room Air 97.7 Lab Results Laboratory Tests Test 04/16/19 13:31 04/16/19 14:46 04/17/19 04:00 04/18/19 05:45 Urine Collection Type Unknown Urine Color Yellow Urine Clarity Clear Urine pH 7.0 Urine Specific [place] <=1.005 Urine Protein Negative mg/dL (NEG-TRACE) Urine Glucose (UA) Negative mg/dL (NEG) Urine Ketones (Stick) Negative mg/dL (NEG) Urine Blood Negative (NEG) Urine Nitrite Positive (NEG) Urine Bilirubin Negative (NEG) Urine Urobilinogen Dipstick 0.2 mg/dL (0.2 mg/dL) Urine Leukocyte Esterase Moderate (NEG) Urine RBC Occ /HPF (0-2) Urine WBC 11-20 /HPF (0-4) Urine Squamous Epithelial Cells Few /LPF Urine Bacteria Many /HPF (0-FEW) Bedside Troponin I 0.01 ng/ml (<0.08) Sodium Level 132 mmol/L (136-145) 135 mmol/L (136-145) Potassium Level 3.7 mmol/L (3.5-5.1) 4.1 mmol/L (3.5-5.1) Chloride Level 98 mmol/L (98-107) 99 mmol/L (98-107) Carbon Dioxide Level 26 mmol/L (21-32) 26 mmol/L (21-32) Anion Gap 8 (6-14) 10 (6-14) Blood Urea Nitrogen 11 mg/dL (7-20) 11 mg/dL (7-20) Creatinine 0.9 mg/dL (0.6-1.0) 1.0 mg/dL (0.6-1.0) Estimated GFR (Cockcroft-Gault) 59.7 52.8 Glucose Level 145 mg/dL (70-99) 110 mg/dL (70-99) Calcium Level 8.3 mg/dL (8.5-10.1) 8.3 mg/dL (8.5-10.1) Laboratory Tests Test 04/18/19 05:45 Sodium Level 135 mmol/L (136-145) Potassium Level 4.1 mmol/L (3.5-5.1) Chloride Level 99 mmol/L (98-107) Carbon Dioxide Level 26 mmol/L (21-32) Anion Gap 10 (6-14) Blood Urea Nitrogen 11 mg/dL (7-20) Creatinine 1.0 mg/dL (0.6-1.0) Estimated GFR (Cockcroft-Gault) 52.8 Glucose Level 110 mg/dL (70-99) Calcium Level 8.3 mg/dL (8.5-10.1) Brief Hospital Course Ms. Graves is a 83 old white female who lives at home with admitted for UTI< some sxs, and n/.v but unimpressive labs and CT, SHe got better after overnight stay, Urine cx pending but doing well on rocephin, ALlergy to sulfa, I will dc on PO cipro, with instructions to come back if worse (As urine cx pending when i dcd her), No pT needs, SOme zofran ODT I also wrote SHe is getting enema and has moved BM some Can be confused, but calm DispO; home with Dw RN and SW Discharge Information Condition at Discharge: Improved, Stable Disposition/Orders: D/C to Home Scheduled Cholecalciferol (Vitamin D3) (Vitamin D3) 1,000 Unit Capsule, 1,000 UNIT PO DAILY, (Reported) Entered as Reported by: Diana Rubio on 09/30/151743 Last Action: Reviewed on 04/16/191811 by EFFIE DAWSON Ciprofloxacin Hcl (Cipro) 500 Mg Tablet, 1 TAB PO BID for uti for 7 Days, #14 Ref 0 Prescribed by: STIVEN JOYA on 04/18/19 0852 Docusate Sodium (Colace) 100 Mg Capsule, 1 CAP PO DAILY, #30 (Reported) Entered as Reported by: Diana Rubio on 09/30/151743 Last Action: Reviewed on 04/16/191811 by EFFIE DAWSON Gabapentin (Gabapentin) 600 Mg Tablet, 600 MG PO BID, (Reported) Entered as Reported by: Aisha Dixon on 05/29/172002 Last Action: Reviewed on 04/16/191811 by EFFIE DAWSON Levothyroxine Sodium (Levothyroxine Sodium) 75 Mcg Tablet, 75 MCG PO DAILY for low thyroid function, (Reported) Last dose given: 7:00 a.m. Entered as Reported by: JELENA THOMPSON on 09/05/13 1238 Last Action: Reviewed on 04/16/191811 by EFFIE DAWSON Losartan Potassium (Losartan Potassium ) 25 Mg Tablet, 50 MG PO BID for high blood pressure, (Reported) Last dose given: 9:00 a.m. Entered as Reported by: JELENA THOMPSON on 09/05/13 1239 Last Action: Edited on 04/16/191811 by EFFIE DAWSON Phenazopyridine Hcl (Pyridium) 100 Mg Tablet, 1 TAB PO TID for urinary discomfort for 5 Days, #15 Ref 0 Prescribed by: STIVEN JOYA on 04/18/19 0852 Polyethylene Glycol 3350 (Miralax) 17 Gm Powd.pack, 17 GM PO DAILY for prevent constipation, (Reported) Last dose given: 9:00 a.m. Entered as Reported by: YOCASTA SMILEY on 11/02/13 1444 Last Action: Reviewed on 04/16/191811 by EFFIE DAWSON Scheduled PRN Ondansetron (Ondansetron Odt) 4 Mg Tab.rapdis, 4 MG PO PRN Q6HRS PRN for NAUSEA/VOMITING, #60 Prescribed by: STIVEN JOYA on 04/18/19 0852 Tramadol Hcl (Tramadol Hcl) 50 Mg Tablet, 50 MG PO PRN BID PRN for PAIN, (Reported) Entered as Reported by: EFFIE DAWSON on 04/16/191811 Last Taken: Unknown Dose on Unknown Date & Time Last Action: New Order on 04/16/191811 by EFFIE DAWSON Discontinued Medications [steroid taper] , (Reported) Entered as Reported by: STUART VERA on 06/04/17 2233 STIVEN JOYA MD Apr 18, 2019 11:31
--- NOTE | 2019-04-18 12:08 | NUR ---
SW following. Discussed with RN, pt having an enema today to assist with BM. Plan is to discharge home with self care after BM. RN advised no SW needs.
== END 2019-04-18 13:11 | disposition home or self-care (01) | DRG 689 ==
LOC: ER 10:37 → 4 NORTH 14:05
PROVIDERS: ADMIT Internal Medicine; ATTEND Internal Medicine
DX: N39.0 Urinary tract infection, site not specified (principal); G93.41 Metabolic encephalopathy; I45.2 Bifascicular block; E87.1 Hypo-osmolality and hyponatremia; K59.09 Other constipation; I10 Essential (primary) hypertension; E03.9 Hypothyroidism, unspecified; R73.9 Hyperglycemia, unspecified; G89.29 Other chronic pain; K44.9 Diaphragmatic hernia without obstruction or gangrene; Z90.710 Acquired absence of both cervix and uterus; Z88.2 Allergy status to sulfonamides; Z88.8 Allergy status to other drugs, medicaments and biological substances; Z91.018 Allergy to other foods; Z87.440 Personal history of urinary (tract) infections; Z79.890 Hormone replacement therapy
CPT/HCPCS: 36415; 74022; 74176; 80048; 80053; 81001; 83690; 84484; 85025; 87086; 93005; 96361; 96374; 96375; 96376; J0360; J0696; J0780; J1650; J2060; J2270; J2405; J7030; 97116; 97530; 97535; 99285-25; G0378

== ENCOUNTER 2021-03-24 08:33 | Emergency (ER) | payer MEDICARE ==
[~2021-03-24] VITALS: Ht 152.4 cm; Wt 70.5 kg
[~2021-03-24 08:33] MED LIST changes: +AMOX1TAB61 PO; +CIPR500T94 PO; +DOXY100T PO; +ONDA4TAB12 PO; +PHEN100T82 PO; +TELM40TA7 PO; +TRAM50TA PO
[2021-03-24 08:48] VITALS: BP 216/80
--- NOTE | 2021-03-24 09:09 | PHYS DOC ---
Past Medical History Past Medical History: Constipation, Hypertension, Hypothyroid Additional Past Medical Histor: CHRONIC PAIN, RIGHT LEG, RIGHT HIP Past Surgical History: Hysterectomy, Other Additional Past Surgical Histo: UNKNOWN BACK SURGERY 2011 Smoking Status: Never Smoker Alcohol Use: None Drug Use: None General Adult EDM: Chief Complaint: MULTIPLE COMPLAINTS HPI: HPI: 85-year-old female with a history of hypertension, hypothyroidism, chronic anemia presents to the emergency department complaining of abnormal lab value that was found last week on outpatient blood draws ordered by Dr. Ceho Tan. She reports that she was called that her hemoglobin level was quite low and to come to the emergency department. She was instructed to do this last week but she states that she got busy and did not come to the ER because she did not have any symptoms. Today she does complain of feeling fatigued but has no other symptoms. She does have chronic constipation and chronic abnormal urination from a well known bladder prolapse. The patient denies nausea, vomiting, fever, chills, chest pain, shortness of breath, abdominal pain, cough, sick contacts or any other complaints. She did not take her medications this morning. She routinely gets outpatient B12 injections for her anemia. Review of Systems: Review of Systems: ROS is otherwise negative except for what was mentioned in the HPI Heart Score: C/O Chest Pain: No Allergies: Allergies: Allergies Coded Allergies Type Severity Reaction Last Updated Verified Sulfa (Sulfonamide Antibiotics) Allergy Intermediate Rash 09/30/15 Yes estrogens, conjugated Allergy Intermediate Rash 06/04/17 Yes iodine Allergy Intermediate painful rash 09/30/15 Yes iohexol Allergy Intermediate PAINFUL RASH 09/30/15 Yes pepper (genus Capsicum) Adverse Reaction Mild NAUSEA/VOMITING 06/04/17 Yes Physical Exam: PE: Constitutional: No acute distress, non-toxic appearance. HENT: Atraumatic, bilateral external ears normal, nose normal. Eyes: PERRLA, EOMI, conjunctiva normal, no discharge. Neck: Normal range of motion, supple, no stridor. Cardiovascular: Heart rate regular rhythm. 2+ radial pulses Lungs & Thorax: No respiratory distress, symmetrical expansion. Bilateral breath sounds clear to auscultation Abdomen: Soft, no tenderness Skin: Warm, dry. Pale appearing Extremities: No tenderness, no cyanosis, ROM intact, no edema. Neurologic: Alert and oriented X 3, normal motor function, normal sensory function, no focal deficits noted. Non ataxic gait. GCS 15. Psychologic: Affect normal, judgment normal, mood normal. Current Patient Data: Labs: Laboratory Tests Test 03/24/21 09:20 White Blood Count 3.9 x10^3/uL (4.0-11.0) Red Blood Count 2.44 x10^6/uL (3.50-5.40) Hemoglobin 8.8 g/dL (12.0-15.5) Hematocrit 25.0 % (36.0-47.0) Mean Corpuscular Volume 103 fL (79-100) Mean Corpuscular Hemoglobin 36 pg (25-35) Mean Corpuscular Hemoglobin Concent 35 g/dL (31-37) Red Cell Distribution Width 14.9 % (11.5-14.5) Platelet Count 235 x10^3/uL (140-400) Neutrophils (%) (Auto) 65 % (31-73) Lymphocytes (%) (Auto) 25 % (24-48) Monocytes (%) (Auto) 7 % (0-9) Eosinophils (%) (Auto) 2 % (0-3) Basophils (%) (Auto) 1 % (0-3) Neutrophils # (Auto) 2.6 x10^3/uL (1.8-7.7) Lymphocytes # (Auto) 1.0 x10^3/uL (1.0-4.8) Monocytes # (Auto) 0.3 x10^3/uL (0.0-1.1) Eosinophils # (Auto) 0.1 x10^3/uL (0.0-0.7) Basophils # (Auto) 0.0 x10^3/uL (0.0-0.2) Sodium Level 126 mmol/L (136-145) Potassium Level 4.2 mmol/L (3.5-5.1) Chloride Level 95 mmol/L (98-107) Carbon Dioxide Level 24 mmol/L (21-32) Anion Gap 7 (6-14) Blood Urea Nitrogen 14 mg/dL (7-20) Creatinine 1.1 mg/dL (0.6-1.0) Estimated GFR (Cockcroft-Gault) 47.1 Glucose Level 95 mg/dL (70-99) Calcium Level 8.5 mg/dL (8.5-10.1) Vital Signs: Vital Signs Date Time Temp Pulse Resp B/P (MAP) Pulse Ox O2 Delivery O2 Flow Rate FiO2 03/24/21 08:48 98.6 66 16 216/80 (125) 98 Room Air 98.6 Course & Med Decision Making: Course & Med Decision Making Patient has no evidence of acute end organ damage from hypertension. I counseled the patient on their high blood pressure and the need to follow-up in the clinic to get this addressed. Patient's hemoglobin 8.8, evidence for macrocytic source. She denies any bleeding recently. I advised her to follow-up with Dr. Tan, continue with her home medications, and continue to follow for B12 injections. Patient is comfortable with plan for follow-up. She has chronic vaginal infections and is followed by an [employer] physician and will follow up for this from an outpatient basis. Will follow cultures for urine, likely contaminated. I discussed care with Dr. Tan who will follow up patient for further care on outpatient basis. Laboratory Tests Test 03/24/21 09:20 White Blood Count 3.9 x10^3/uL (4.0-11.0) Red Blood Count 2.44 x10^6/uL (3.50-5.40) Hemoglobin 8.8 g/dL (12.0-15.5) Hematocrit 25.0 % (36.0-47.0) Mean Corpuscular Volume 103 fL (79-100) Mean Corpuscular Hemoglobin 36 pg (25-35) Mean Corpuscular Hemoglobin Concent 35 g/dL (31-37) Red Cell Distribution Width 14.9 % (11.5-14.5) Platelet Count 235 x10^3/uL (140-400) Neutrophils (%) (Auto) 65 % (31-73) Lymphocytes (%) (Auto) 25 % (24-48) Monocytes (%) (Auto) 7 % (0-9) Eosinophils (%) (Auto) 2 % (0-3) Basophils (%) (Auto) 1 % (0-3) Neutrophils # (Auto) 2.6 x10^3/uL (1.8-7.7) Lymphocytes # (Auto) 1.0 x10^3/uL (1.0-4.8) Monocytes # (Auto) 0.3 x10^3/uL (0.0-1.1) Eosinophils # (Auto) 0.1 x10^3/uL (0.0-0.7) Basophils # (Auto) 0.0 x10^3/uL (0.0-0.2) Urine Collection Type Unknown Urine Color Yellow Urine Clarity Clear Urine pH 7.0 (<5.0-8.0) Urine Specific Tie [place] <=1.005 (1.000-1.030) Urine Protein Negative mg/dL (NEG-TRACE) Urine Glucose (UA) Negative mg/dL (NEG) Urine Ketones (Stick) Negative mg/dL (NEG) Urine Blood Negative (NEG) Urine Nitrite Negative (NEG) Urine Bilirubin Negative (NEG) Urine Urobilinogen Dipstick 0.2 mg/dL (0.2 mg/dL) Urine Leukocyte Esterase Small (NEG) Urine RBC 0 /HPF (0-2) Urine WBC 1-4 /HPF (0-4) Urine Squamous Epithelial Cells Few /LPF Urine Bacteria Many /HPF (0-FEW) Sodium Level 126 mmol/L (136-145) Potassium Level 4.2 mmol/L (3.5-5.1) Chloride Level 95 mmol/L (98-107) Carbon Dioxide Level 24 mmol/L (21-32) Anion Gap 7 (6-14) Blood Urea Nitrogen 14 mg/dL (7-20) Creatinine 1.1 mg/dL (0.6-1.0) Estimated GFR (Cockcroft-Gault) 47.1 Glucose Level 95 mg/dL (70-99) Calcium Level 8.5 mg/dL (8.5-10.1) Departure Departure Impression: Primary Impression: Anemia Additional Impression: UTI (urinary tract infection) Disposition: 01 HOME / SELF CARE / HOMELESS Condition: STABLE Referrals: CHEO TAN MD (PCP) Patient Instructions: Anemia, Nonspecific-Brief Additional Instructions: You were seen in the emergency department and your health condition was deemed not to require admission to the hospital. It is important to realize that we can only evaluate you during the time that you are in her department. Occasionally health conditions can worsen upon leaving the emergency department. If this were to happen, please return to and allow us the opportunity to reevaluate you. It is a pleasure to take care of your health needs. Return to the ER if your symptoms worsen, do not improve, or if you develop additional symptoms that are concerning to you Scripts Cephalexin (CEPHALEXIN) 500 Mg Tablet 1 TAB PO BID for 5 Days, #10 TAB Prov: MARSHA OSORIO DO 03/24/21 MARSHA OSORIO DO Mar 24, 2021 09:08
[2021-03-24 09:39] LABS: CALCIUM 8.5 mg/dL (8.5-10.1); CREATININE 1.1 mg/dL (0.6-1.0); GFR 47.1; POTASSIUM 4.2 mmol/L (3.5-5.1)
[2021-03-24 09:52] LABS: BILIRUBIN,URINE NEGATIVE (NEG); CLARITY,URINE CLEAR; COLOR,URINE YELLOW; NITRITE,URINE NEGATIVE (NEG); PROTEIN,URINE NEGATIVE (NEG-TRACE); UROBILINOGEN,URINE 0.2 mg/dL (0.2 mg/dL)
[2021-03-24 09:55] LABS: BASO % 1 % (0-3); EOS # 0.1 x10^3/uL (0.0-0.7); EOS % 2 % (0-3); HEMOGLOBIN 8.8 g/dL (12.0-15.5); LYMPH % 25 % (24-48); MEAN CORPUSCULAR HEMOGLOBIN 36 pg (25-35); MEAN CORPUSCULAR HGB CONC 35 g/dL (31-37); MEAN CORPUSCULAR VOLUME 103 fL (79-100); MONO # 0.3 x10^3/uL (0.0-1.1); MONO % 7 % (0-9); NEUT # 2.6 x10^3/uL (1.8-7.7); NEUT % 65 % (31-73); PLATELET COUNT 235 x10^3/uL (140-400); RED BLOOD COUNT 2.44 x10^6/uL (3.50-5.40); RED CELL DISTRIBUTION WIDTH 14.9 % (11.5-14.5); WHITE BLOOD COUNT 3.9 x10^3/uL (4.0-11.0)
[2021-03-24 10:14] LABS: BACTERIA,URINE MANY /HPF (0-FEW); RBC,URINE 0 /HPF (0-2)
[2021-03-24] MEDS ORDERED: CEPH500T PO (10:40)
== END 2021-03-24 10:56 | disposition home or self-care (01) ==
LOC: ER 08:33
DX: D64.9 Anemia, unspecified (principal); N39.0 Urinary tract infection, site not specified; I10 Essential (primary) hypertension; E03.9 Hypothyroidism, unspecified; G89.29 Other chronic pain; Z90.710 Acquired absence of both cervix and uterus; Z88.2 Allergy status to sulfonamides; Z88.4 Allergy status to anesthetic agent; Z88.8 Allergy status to other drugs, medicaments and biological substances
CPT/HCPCS: 36415; 80048; 81001; 85025; 86850; 86900; 86901; 87077; 87086; 87186; 99284

== ENCOUNTER → 2021-04-18 | Outpatient (CLI) | payer MEDICARE ==
[2021-03-24 08:48] VITALS: BP 216/80
[~2021-04-18] MED LIST changes: +CEPH500T PO
[2021-04-18 13:58] LABS: BASO % 1 % (0-3); EOS # 0.1 x10^3/uL (0.0-0.7); EOS % 2 % (0-3); HEMATOCRIT 26.3 % (36.0-47.0); HEMOGLOBIN 9.2 g/dL (12.0-15.5); LYMPH # 1.5 x10^3/uL (1.0-4.8); LYMPH % 43 % (24-48); MEAN CORPUSCULAR HEMOGLOBIN 36 pg (25-35); MEAN CORPUSCULAR HGB CONC 35 g/dL (31-37); MEAN CORPUSCULAR VOLUME 104 fL (79-100); MONO # 0.2 x10^3/uL (0.0-1.1); MONO % 6 % (0-9); NEUT # 1.7 x10^3/uL (1.8-7.7); NEUT % 49 % (31-73); PLATELET COUNT 224 x10^3/uL (140-400); RED BLOOD COUNT 2.53 x10^6/uL (3.50-5.40); RED CELL DISTRIBUTION WIDTH 14.9 % (11.5-14.5)
[2021-04-21 13:33] LABS: WHITE BLOOD COUNT 3.5 x10^3/uL (4.0-11.0)
[2021-04-21 17:10] LABS: IMMUNOGLOBULIN A 138 mg/dL (64-422); IMMUNOGLOBULIN G 972 mg/dL (586-1602); IMMUNOGLOBULIN M 33 mg/dL (26-217)
[2021-04-21 18:10] LABS: ALPHA 1 0.2 g/dL (0.0-0.4); ALPHA 2 0.5 g/dL (0.4-1.0); BETA 0.7 g/dL (0.7-1.3); GAMMA 0.9 g/dL (0.4-1.8); PROTEIN TOTAL 6.4 g/dL (6.0-8.5); SPEP AG RATIO 1.7 (0.7-1.7)
== END ==
LOC: ONCLAB 13:09
PROVIDERS: ATTEND Internal Medicine Hematology & Oncology
DX: D46.9 Myelodysplastic syndrome, unspecified (principal)
CPT/HCPCS: 36415; 82525; 82668; 82728; 82784; 83010; 83540; 83550; 84165; 85025; 85045; 86334

== ENCOUNTER → 2021-09-15 | Outpatient (CLI) | payer MEDICARE ==
--- NOTE | 2021-09-15 15:42 | PDOC1 ---
INITIAL PAIN CONSULT DATE OF SERVICE: DOS: DATE: 09/15/21 TIME: 15:34 CHIEF COMPLAINT: Chief Complaint: Low back and bilateral lower extremity pain HISTORY OF PRESENT ILLNESS: 85-year-old female presents history of pain in the low back and bilateral lower extremities for about 2 years after a fall at home patient had compression fracture T12 at that time the pain got slightly better but for the past 2 years has been becoming more noticeable in the past 6 months patient reports across the low back and the bilateral lower extremities posterior gluteus posterior thighs posterior calves at times worse with walking and standing and standing upright patient reports standing upright and standing still at 1 position such as at the sink is becoming much more unbearable patient reports she feels better with leaning forward sitting or laying down generally the pain is waking her from sleep very rarely does not affect her bowel bladder control but does affect her point walk significant patient has a cane with her today but uses a walker which has a seat on it when she is at home or going further distances she reports. Patient has had epidural injections in the past and many years ago physical therapy 2007 in 2018 also chiropractic treatment which is ongoing and is doing exercises and strengthening stretching from the therapy and chiropractor treatments currently patient is trying to walk daily even with her walker she reports he can only go about 10 minutes at the most when she has to sit and rest patient has been taking hydrocodone she is try Tylenol 3 as well as [id number] Advil and Tylenol all of which not decrease the pain significantly for a long period of time. Patient rates disability rating 0-10 10 me the worst is a 10 with family responsibilities and recreation occupation sexual behavior 3 with self-care 6 with social activities and 0 with life support activities. Patient did have an MRI scan of the lumbar spine showing grade 1 anterolisthesis of L4 on L5 with posterior fusion at L4-5 and S1 levels with superior height loss of the L1 vertebral body T12 T11 vertebral body show height loss as well disc narrowing throughout the lumbar spine with lateral neuroforaminal encroachment at L3-L4 as well as L4-5. PAST MEDICAL HISTORY: PMH: Hypertension, arthritis, cataracts PREVIOUS SURGERIES: Past Surgical Hx: Lumbar surgery 2013 and 2012 with instrumented fusion L4-S1, hysterectomy, bilateral cataract extraction, urethropexy CURRENT MEDICATIONS: Current Meds: Active Scripts Medications Dose Route/Sig Max Daily Dose Days Date Category Dose Instructions Telmisartan 40 Mg Tablet 1 Tab PO DAILY 09/27/20 Reported Vitamin D3 (Cholecalciferol (Vitamin D3)) 1,000 Unit Capsule 1,000 Unit PO DAILY 09/30/15 Reported Levothyroxine Sodium 75 Mcg Tablet 75 Mcg PO DAILY 09/05/13 Reported Last dose given: 7:00 a.m. ALLERGIES; Allergies: Coded Allergies: Sulfa (Sulfonamide Antibiotics) (Verified Allergy, Intermediate, Rash, 09/30/15) estrogens, conjugated (Verified Allergy, Intermediate, Rash, 06/04/17) iodine (Verified Allergy, Intermediate, painful rash, 09/30/15) pt states that she is sensitive to all chemicals iohexol (Verified Allergy, Intermediate, PAINFUL RASH, 09/30/15) pepper (genus Capsicum) (Verified Adverse Reaction, Mild, NAUSEA/VOMITING, 06/04/17) FAMILY HISTORY: Family Hx: Diabetes, heart disease SOCIAL HISTORY: Social Hx: Patient is under alcohol does not smoke says any illegal licit recreational drugs is lives with her spouse lives locally in [facility] and is currently retired. REVIEW OF SYSTEMS: ROS: Positive for those items mentioned in history of present illness, all systems are reviewed, otherwise negative ,and are complete full and well-documented on patient's chart. PHYSICAL EXAM: VS: Blood pressure is 137/64 pulse 64 respirations 18 temperature 97.7 F height is 5 foot 1 his weight is 150 pounds. PE: PHYSICAL EXAMINATION: GENERAL: The patient is awake, alert, oriented, appropriate, very pleasant in demeanor HEENT: Shows normocephalic, atraumatic. Extraocular movements are intact and symmetrical. Oral cavity: Mucous membranes moist and pink. NECK: Shows anterior throat supple without palpable lymphadenopathy noted. Swallow reflex symmetrical. CHEST: Shows normal on inspection. Breath sounds are clear bilaterally, distant but no rales rhonchi or wheezes auscultated. HEART: Shows S1, S2 clear. No murmurs auscultated. ABDOMEN: Soft, nontender, nondistended. No palpable organomegaly is noted. BACK: Shows spine grossly in the midline. Normal-appearing cervical lordotic curvature. There is increased thoracic kyphosis, some moderate flattening of th e lumbar lordotic curvature. Lumbar paraspinous muscles show symmetrical on inspection, on palpation shows some moderate tenderness diffusely throughout the upper, middle and lower distribution of the paraspinous muscles bilaterally and also into the lower thoracic paraspinous musculature, firm and tender, but without specific trigger points, without radiation of pain. The patient has good rotational motion of the lumbar spine, both laterally as well as extension and flexion with some tenderness with extension but no radiation and decreased tenderness with forward flexion. No tenderness over the spinous processes, sacrum or sacroiliac regions. EXTREMITIES: Lower extremities show deep tendon reflexes 1+ in the patellar and tendo calcaneus tendons. Motor exam is 4 on a scale of 5 with right dorsiflexion, extension, quadriceps and hamstring flexion and 4/5 on the left. Peripheral pulses are 1+ posterior tibial. No peripheral edema is noted bilaterally. Lower extremities are warm and dry to touch, equal in color and appearance. Straight leg raise noted to be positive bilaterally approximate 35 degrees decreased with knee flexion. Gaenslen's and Beltran's maneuvers are negative bilaterally. The patient is able to stand, but needs help getting up from seated position using her cane in the arms of the chair, walks with a significant antalgic gait does appear to favor the left lower extremity slightly more than the right and is using a cane in her right hand to ambulate today. SKIN: Shows warm and dry, good turgor. No edema. No sores, rashes or bruising throughout. IMPRESSION: Impression: 85-year-old female with approximate 2-year history low back bilateral lower extremity pain and radicular fashion following an L5-S1 dermatomal distribution bilaterally left slightly greater than right. MRI scan lumbar spine as noted Hypertension Arthritis Plan: Options were discussed with the patient including conservative medical managements continued physical therapies and interventional techniques. As patient is doing physical therapy exercises and stretching strengthening as well as ongoing chiropractic treatment, and taking prescription as well as [id number] analgesics, she would like to pursue interventional techniques that she is done very well with these in the distant past. As patient has clinical radiculopathy in an L5-S1 dermatomal distribution in the bilateral lower extremities, we discussed a lumbar epidural steroid injection using descriptions as well as anatomical models to describe the procedure. Patient wishes to wait for preauthorization with her insurance provider, once obtained we will have her return for a translaminar approach L5-S1 level lumbar epidural steroid injection with fluoroscopic guidance. In the meantime, patient will continue with stretching strength exercises walking daily as well as chiropractic treatment as desired and oral analgesics as currently. BHANU HARRIS MD Sep 15, 2021 15:42
== END | disposition home or self-care (01) ==
LOC: PNCL 13:30
PROVIDERS: ATTEND Anesthesiology
DX: M54.50 Low back pain, unspecified (principal); M79.605 Pain in left leg; M79.604 Pain in right leg; I10 Essential (primary) hypertension; M19.90 Unspecified osteoarthritis, unspecified site; K21.9 Gastro-esophageal reflux disease without esophagitis; E03.9 Hypothyroidism, unspecified; F41.9 Anxiety disorder, unspecified; F32.9 Major depressive disorder, single episode, unspecified; Z79.899 Other long term (current) drug therapy; Z98.890 Other specified postprocedural states; Z88.2 Allergy status to sulfonamides; Z88.8 Allergy status to other drugs, medicaments and biological substances; Z90.710 Acquired absence of both cervix and uterus
CPT/HCPCS: G0463

== ENCOUNTER → 2021-09-26 | Outpatient (CLI) | payer MEDICARE ==
[~2021-09-26] MED LIST changes: +methylPREDNISolone ACETATE 40 MG/ML VIAL. ONE
--- NOTE | 2021-09-26 12:31 | PDOC ---
Progress Note - Pain Clinic Date of Service: DOS: DATE: 09/26/21 TIME: 12:25 Diagnosis: Dx: Lumbar radiculopathy lumbar degenerative disease and lumbar spinal stenosis History or Present Illness: HPI: 85-year-old female returns for follow-up status post previous evaluation and preauthorization patient reported pain in the low back and into the bilateral lower extremities posterior gluteus posterior thigh posterior calf patient has new pain today across the mid upper back she reports she also has a rash in this area which is quite painful which she did not have previously patient reports its been getting worse in the upper back she is not wearing her undergarments today because of the pain in the mid upper back between the shoulders. Patient reports no specific injury or accident of it is difficult for her to stand up straight because of the pain in the upper back as well as the low back patient reports is has trouble walking and does have a walker which she uses and has it with her today as well. Patient reports no bowel or bladder incontinence scribes pain is aching and sharp dull tight shooting stabbing radiating can be severe and unbearable in the lower extremities in the low back also severe burning and stabbing in the mid back between the shoulder blades. Patient repo rts no bowel or bladder incontinence no loss of motor function. Physical Exam: VS: Blood pressure is 156/63 pulse 70 respirations are 20 temperature is 97.6 F height is 5 foot 4 inches, weight is 150 pounds. PE: PHYSICAL EXAMINATION: GENERAL: The patient is awake, alert, oriented, appropriate, very pleasant in demeanor HEENT: Shows normocephalic, atraumatic. Extraocular movements are intact and symmetrical. NECK: Shows anterior throat supple without palpable lymphadenopathy noted. Swallow reflex symmetrical. CHEST: Shows normal on inspection. Breath sounds are clear bilaterally. HEART: Shows S1, S2 clear. No murmurs auscultated. ABDOMEN: Soft, nontender, nondistended. No palpable organomegaly is noted. No rebound or guarding demonstrated. BACK: Shows spine grossly in the midline. Normal-appearing cervical lordotic curvature. There is slightly increased thoracic kyphosis, some minor flattening of the lumbar lordotic curvature. Thoracic paraspinous muscle shows moderately tender with palpation and has a slight rash consistent with a heat rash very small red petechiae across a band consistent with the area where her bra would be on most wearing occasions. No evidence of any pustules no blistering or significant erythema and areas present bilaterally only on the back between the shoulder blades but is moderately tender with even moderate palpation. No trigger points identified bilaterally. Lumbar paraspinous muscles show symmetrical on inspection, on palpation shows some moderate tenderness diffusely throughout the upper, middle and lower distribution of the paraspinous muscles, but without specific trigger points, without radiation of pain. The patient has good rotational motion of the lumbar spine, both laterally as well as extension and flexion without significant difficulty. EXTREMITIES: Lower extremities show deep tendon reflexes 1 in the patellar and tendo calcaneus tendons. Motor exam is 4 on a scale of 5 with right dorsiflexion, extension, quadriceps and hamstring flexion and 4/5 on the left. Peripheral pulses are 1 posterior tibial. No peripheral edema is noted bilaterally. Lower extremities are warm and dry to touch, equal in color and appearance. SKIN: Shows warm and dry, good turgor. No edema. No sores, rashes or bruising throughout. Procedure: Procedure: Options were discussed with the patient. Patient's old chart was reviewed as her current medication regimen updated current review of systems updated today as well. We will proceed with a lumbar epidural steroid injection today with fluoroscopic guidance. Risks were discussed including but not limited to: Bleeding, infection, possibility of epidural hematoma and subsequent neurological compromise, dural puncture, headaches, spinal cord and/or nerve damage, side effects of steroid medication, and poor results regarding pain control. Patient understands and wished to proceed. Patient return to clinic in approximate 2 weeks for follow-up, was counseled as to return appointment, active level, and side effect to be aware of. Regarding patient's upper mid back pain, recommended patient do stretching strength exercises showed her some of these to do today as well as keeping the area dry and cool if possible and avoiding any undergarments that might irritate the rash and cause more discomfort in this region. Patient understands and agrees. Medication Injected: Med Injected: Procedure is lumbar epidural steroid injection under local anesthetic using sterile prep and drape at the L5-S1 level using C-arm fluoroscopic guidance in both AP and lateral views medications injected is 120 mg methylprednisolone +10mL preservative-free normal saline and 2 mL contrast- condition at discharge is stable patient tolerated procedure well had no complications. Condition at Discharge: Condition at Discharge: Condition at discharge stable, patient tolerated the procedure well and had no complications. BHANU HARRIS MD Sep 26, 2021 12:31
--- NOTE | 2021-09-26 12:32 | PDOC4 ---
Procedure Note: ICD 10 Code: ICD 10 Code: M54.17 M51.87 M48.07 Procedure Note: Patient is consented for lumbar epidural steroid injection with fluoroscopic guidance. Risks were discussed including but not limited to: Bleeding, infection, possibility of epidural hematoma and subsequent neurological compromise, dural puncture, headaches, spinal cord and/or nerve damage, side effects of steroid medication, and poor results regarding pain control. Patient understands and wished to proceed. Procedure is lumbar epidural steroid injection under local anesthetic using sterile prep and drape at the L5-S1 level using C-arm fluoroscopic guidance in both AP and lateral views medications injected is 120 mg methylprednisolone +10mL preservative-free normal saline and 2 mL contrast- condition at discharge is stable patient tolerated procedure well had no complications. BHANU HARRIS MD Sep 26, 2021 12:32
== END | disposition home or self-care (01) ==
LOC: PNCL 11:42
PROVIDERS: ATTEND Anesthesiology
DX: M51.16 Intervertebral disc disorders with radiculopathy, lumbar region (principal); M48.061 Spinal stenosis, lumbar region without neurogenic claudication; I10 Essential (primary) hypertension; K21.9 Gastro-esophageal reflux disease without esophagitis; E03.9 Hypothyroidism, unspecified; F41.9 Anxiety disorder, unspecified; F32.9 Major depressive disorder, single episode, unspecified; Z90.710 Acquired absence of both cervix and uterus; Z98.890 Other specified postprocedural states; Z79.899 Other long term (current) drug therapy; Z88.8 Allergy status to other drugs, medicaments and biological substances; Z91.041 Radiographic dye allergy status
CPT/HCPCS: 62323; J1030

== ENCOUNTER → 2021-10-10 | Outpatient (CLI) | payer MEDICARE ==
[~2021-10-10] MED LIST changes: -methylPREDNISolone ACETATE 40 MG/ML VIAL. ONE
--- NOTE | 2021-10-10 11:10 | PDOC ---
Progress Note - Pain Clinic Date of Service: DOS: DATE: 10/10/21 TIME: 11:04 Diagnosis: Dx: Lumbar radiculopathy with lumbar degenerative disease lumbar spinal stenosis History or Present Illness: HPI: 85-year-old female returns for follow-up status post lumbar epidural steroid injection x1. Patient reports about 70% improvement initially with the pain returning now in the low back and bilateral lower extremities patient reports is much better she is increase her activity with greater ease and comfort walking greater distances performing activities at home and traveling much greater ease and comfort and sleeping better at night patient reports she used to reduce the amount of pain medication she was taking, ibuprofen and Tylenol and sleeping much better at night as noted. Patient reports her pain now is returning in the low back and bilateral lower extremities posterior gluteus posterior thighs po sterior calves and is difficult for her to stand upright she reports that she sitting she feels much better after laying down as well and still sleeping better at night but when standing upright or walking the pain returns. Patient reports is constant aching in the back in the legs dull and shooting tight and radiating. Patient reports no bowel or bladder incontinence no loss of motor function. Patient continues to do stretching strength exercises at home from previous physical therapy instruction and reports either helpful but only very temporarily. Physical Exam: VS: Blood pressure is 139/70 pulse 69 respiration 17 temperature is 97.7 F weight is 146 pounds. PE: PHYSICAL EXAMINATION: GENERAL: The patient is awake, alert, oriented, appropriate, very pleasant in demeanor HEENT: Shows normocephalic, atraumatic. Extraocular movements are intact and symmetrical. Oral cavity: Mucous membranes moist and pink. NECK: Shows anterior throat supple without palpable lymphadenopathy noted. Swallow reflex symmetrical. CHEST: Shows normal on inspection. Breath sounds are clear bilaterally, no rales rhonchi or wheezes auscultated. HEART: Shows S1, S2 clear. No murmurs auscultated. ABDOMEN: Soft, nontender, nondistended. No palpable organomegaly is noted. BACK: Shows spine grossly in the midline. Normal-appearing cervical lordotic curvature. There is moderately increased thoracic kyphosis, some flattening of the lumbar lordotic curvature. Lumbar paraspinous muscles show symmetrical on inspection, on palpation shows some moderate tenderness diffusely throughout the upper, middle and lower distribution of the paraspinous muscles, but without specific trigger points, without radiation of pain. The patient has good rotational motion of the lumbar spine, both laterally as well as extension and flexion without significant difficulty. EXTREMITIES: Lower extremities show deep tendon reflexes 1+ in the patellar and tendo calcaneus tendons. Motor exam is 4 on a scale of 5 with right dorsiflexion, extension, quadriceps and hamstring flexion and 4/5 on the left. Peripheral pulses are 1+ posterior tibial. No peripheral edema is noted bilaterally. Lower extremities are warm and dry to touch, equal in color and appearance. SKIN: Shows warm and dry, good turgor. No edema. No sores, rashes or bruising throughout. Procedure: Procedure: Options were discussed with patient. Patient's old chart was reviewed as her current medication regimen updated current review of systems updated today as well. We will preauthorize patient for second lumbar epidural steroid injection she did very well after the first injection with about 70% improvement with pain returning in a radicular fashion following an L5-S1 dermatomal distribution of bilateral lower extremities, not as severe but significant and present. Patient will continue with stretching strength exercises as well as oral analgesics as necessary in the meantime. Also will call in new prescription of Medrol Dosepak, patient was given instructions well side effects beware with the medication. Patient will follow-up after preauthorization, we will plan on translaminar approach L5-S1 lumbar epidural steroid injection with fluoroscopic guidance. Medication Injected: Med Injected: None Condition at Discharge: Condition at Discharge: Condition at discharge is stable. BHANU HARRIS MD Oct 10, 2021 11:10
== END | disposition home or self-care (01) ==
LOC: PNCL 10:19
PROVIDERS: ATTEND Anesthesiology
DX: M51.16 Intervertebral disc disorders with radiculopathy, lumbar region (principal); M48.061 Spinal stenosis, lumbar region without neurogenic claudication; K21.9 Gastro-esophageal reflux disease without esophagitis; I10 Essential (primary) hypertension; E03.9 Hypothyroidism, unspecified; F41.9 Anxiety disorder, unspecified; F32.9 Major depressive disorder, single episode, unspecified; Z90.710 Acquired absence of both cervix and uterus; Z98.890 Other specified postprocedural states; Z79.899 Other long term (current) drug therapy; Z88.8 Allergy status to other drugs, medicaments and biological substances
CPT/HCPCS: 99212; G0463

== ENCOUNTER → 2021-10-23 | Outpatient (CLI) | payer MEDICARE ==
[~2021-10-23] MED LIST changes: +DEXAMETHASONE PRES.FREE 10 MG/ML VIAL. ONE; +IOHEXOL 180 MG/ML 10 ML VIAL. ONE
--- NOTE | 2021-10-23 14:41 | PDOC ---
Progress Note - Pain Clinic Date of Service: DOS: DATE: 10/23/21 TIME: 14:35 Diagnosis: Dx: Lumbar radiculopathy with lumbar degenerative disease and lumbar spinal stenosis History or Present Illness: HPI: 86-year-old female returns for follow-up status post lumbar epidural steroid injection x1 with very good results about 70% improvement with the pain returning down the low back and the bilateral lower extremities posterior gluteus posterior thighs patient reports is more in the back now and is changed to some extent as the back is her main complaint less radiation to the lower extremities but still present with standing patient reports with sitting or lying down she generally has no pain but when standing or getting up from a seated position the pain is significant and can be excruciating patient rates as 8 on scale 10 is worst 8 on average 8 at its least over the past few days and is an 8 today patient report is aching and sharp again with positional changes noted can be constant as well with standing and walking and standing seems to be worse than walking when she is moving it takes her a long time she reports to get up in the morning and get around secondary to the pain when she does however standing still exacerbates the pain significantly especially in the back bilater ally right and left. Patient reports no motor deficits but significant fatigability of both lower extremities with ambulation and no bowel or bladder incontinence. Physical Exam: VS: Blood pressure is 122/50 pulse 61 respirations 18 temperature 98.2 F weight is 150 pounds. PE: PHYSICAL EXAMINATION: GENERAL: The patient is awake, alert, oriented, appropriate, very pleasant in demeanor HEENT: Shows normocephalic, atraumatic. Extraocular movements are intact and symmetrical. NECK: Shows anterior throat supple without palpable lymphadenopathy noted. Swallow reflex symmetrical. CHEST: Shows normal on inspection. Breath sounds are clear bilaterally. HEART: Shows S1, S2 clear. No murmurs auscultated. ABDOMEN: Soft, nontender, nondistended. No palpable organomegaly is noted. BACK: Shows spine grossly in the midline. Normal-appearing cervical lordotic curvature. There is moderately increased thoracic kyphosis, some significant flattening of the lumbar lordotic curvature, with well-healed surgical scarring noted. Lumbar paraspinous muscles show symmetrical on inspection, on palpation shows some moderate tenderness diffusely throughout the upper, middle and lower distribution of the paraspinous muscles, but without specific trigger points, without radiation of pain. The patient has good rotational motion of the lumbar spine, both laterally as well as extension and flexion without significant difficulty. EXTREMITIES: Lower extremities show deep tendon reflexes 1 in the patellar and tendo calcaneus tendons. Motor exam is 4 on a scale of 5 with right dorsiflexion, extension, quadriceps and hamstring flexion and 4/5 on the left. Peripheral pulses are 1 posterior tibial. No peripheral edema is noted bilat erally. Lower extremities are warm and dry to touch, equal in color and appearance. SKIN: Shows warm and dry, good turgor. No edema. No sores, rashes or bruising throughout. Procedure: Procedure: Options discussed with patient. Patient's chart reviews her current medication regimen updated current review of systems updated today as well. We will proceed with a lumbar epidural steroid ejections today with fluoroscopic guidance. Risks were discussed including but not limited to: Bleeding, infection, possibility of epidural hematoma and subsequent neurological compromise, dural puncture, headaches, spinal cord and/or nerve damage, side effects of steroid medication, and poor results regarding pain control. Patient understands and wished to proceed. Patient will return to clinic in approximate 2 weeks for follow-up, was counseled as to return appointment, active level, and side effect to be aware of. Medication Injected: Med Injected: Procedure is lumbar epidural steroid injection under local anesthetic using sterile prep and drape at the L5-S1 level using C-arm fluoroscopic guidance in both AP and lateral views medications injected is 20 mg dexamethasone +10mL preservative-free normal saline and 2 mL contrast- condition at discharge is stable patient tolerated procedure well had no complications. Condition at Discharge: Condition at Discharge: Condition at discharge stable, paced tolerated the procedure well and had no complications. BHANU HARRIS MD October 23, 2021 14:41
--- NOTE | 2021-10-23 14:42 | PDOC4 ---
Procedure Note: ICD 10 Code: ICD 10 Code: M54.17 M51.7 M48.07 Procedure Note: Patient was consented for lumbar epidural steroid injection with fluoroscopic guidance. Risks were discussed including but not limited to: Bleeding, infection, possibility of epidural hematoma and subsequent neurological compromise, dural puncture, headaches, spinal cord and/or nerve damage, side effects of steroid medication, and poor results regarding pain control. Patient understands and wished to proceed. Procedure is lumbar epidural steroid injection under local anesthetic using sterile prep and drape at the L5-S1 level using C-arm fluoroscopic guidance in both AP and lateral views medications injected is 20 mg dexamethasone +10mL preservative-free normal saline and 2 mL contrast- condition at discharge is stable patient tolerated procedure well had no complications. BHANU HARRIS MD October 23, 2021 14:42
== END | disposition home or self-care (01) ==
LOC: PNCL 13:41
PROVIDERS: ATTEND Anesthesiology
DX: M51.16 Intervertebral disc disorders with radiculopathy, lumbar region (principal); M48.061 Spinal stenosis, lumbar region without neurogenic claudication; I10 Essential (primary) hypertension; K21.9 Gastro-esophageal reflux disease without esophagitis; E03.9 Hypothyroidism, unspecified; F41.9 Anxiety disorder, unspecified; F32.9 Major depressive disorder, single episode, unspecified; Z90.710 Acquired absence of both cervix and uterus; Z98.890 Other specified postprocedural states; Z79.899 Other long term (current) drug therapy; Z88.2 Allergy status to sulfonamides; Z88.8 Allergy status to other drugs, medicaments and biological substances
CPT/HCPCS: 62323; J1100; Q9965